=== PATIENT | female | born 1990 | race Caucasian/White ===

== ENCOUNTER 2018-01-24 23:15 | Inpatient (IN) | payer MEDICAID, SELFPAY ==
[2018-01-24 23:50] LABS: HCT 35.4 % (36.0-46.0); HGB 12.2 g/dL (12.0-15.5); Mean Corp. HGB Concentration 34.5 g/dL (32.0-36.0); Mean Corpuscular Hemoglobin 31.5 pg (27.0-33.0); Mean Corpuscular Volume 91.5 fL (80-95); Mean Platelet Volume 10.5 fL (8.0-11.0); Platelet Count 197 x1000/uL (130-400); RBC 3.87 m/cumm (4.00-5.20); RBC Distribution Width 14.2 % (11.7-14.6); White Blood Cell Count 14.14 k/cumm (4.4-10.8)
[2018-01-25] MEDS: Oxytocin 10 UNITS/ML VIAL IM (01:10)
[2018-01-25] MEDS: Ibuprofen 600 MG TAB PO ×2 (02:33→13:07)
[2018-01-25] MEDS: Acetaminophen 325 MG TAB 650 MG PO ×4 (02:34→23:15)
[2018-01-25 22:01] LABS: HCT 34.3 % (36.0-46.0); HGB 11.4 g/dL (12.0-15.5); Mean Corp. HGB Concentration 33.2 g/dL (32.0-36.0); Mean Corpuscular Hemoglobin 31.6 pg (27.0-33.0); Mean Platelet Volume 10.9 fL (8.0-11.0); Platelet Count 210 x1000/uL (130-400); RBC 3.61 m/cumm (4.00-5.20); RBC Distribution Width 14.4 % (11.7-14.6); White Blood Cell Count 10.43 k/cumm (4.4-10.8)
--- NOTE | 2018-01-26 02:24 | DISCHARGE ---
Discharge - Discharge Orders - Discharge Plan Disposition: HOME Condition: Good Diet:: Normal Diet Equipment/Supplies:: No Equipment Needed Activity:: Activity as Tolerated - Instructions
[2018-01-26] MEDS: Ibuprofen 600 MG TAB PO (03:30)
== END 2018-01-26 12:45 | disposition home or self-care (01) | DRG 775 ==
PROVIDERS: Admitting Provider Advanced Practice Midwife; Visit Provider Advanced Practice Midwife
DX: O48.0 Post-term pregnancy (principal); Z37.0 Single live birth; Z3A.41 41 weeks gestation of pregnancy; Z14.1 Cystic fibrosis carrier
CPT/HCPCS: 36415; 85027; 86850; 86900; 86901; J2590

== ENCOUNTER 2018-02-27 01:22 | Emergency (ER) | payer MEDICAID, SELFPAY ==
[2018-02-27 01:25] VITALS: BP 121/79; PULSE 94; RESP 18; TEMP 36.3; O2SAT 100
--- NOTE | 2018-02-27 01:29 | ED.GENADUL ---
Disposition Clinical Impression: Bronchitis Disposition: HOME Condition: Good Instructions: Acute Bronchitis (ED) Prescriptions: Guaifenesin/Dextromethorphan [Guaifenesin Dm Syrup] 10 ml PO Q6H PRN PRN #100 syrup PRN Reason: Azithromycin 250 mg PO DAILY #4 tablet Medical Decision Making - Medical Decision Making 27-year-old female with persistent productive cough and upper respiratory illness. Difficult to differentiate acute bronchitis versus developing sinusitis. He does not have any current regular medical care. Will opt to treat with a course of azithromycin. She stable for discharge to home. Will trial small amount of guaifenesin for cough suppressant as well. Patient understands return precautions to the ER. History of Present Illness - General Chief complaint: Sorethroat Stated complaint: SORE THROAT Time Seen by Provider: 02/27/18 01:29 Source: patient, RN notes reviewed Mode of arrival: ambulatory Limitations: no limitations - History of Present Illness Initial comments: Cough and cold: 27-year-old female presents from work with complaint of 2 days of the gradual onset of a persistent productive cough associated with sore throat and ear congestion. States she rarely gets sick and this feels similar to previous bronchitis or sinusitis in the past. No associated fever that she is documented, no sick contacts. She has an infant and other children at home. No recent travel. -: days(s) Location: chest Radiation: non-radiation Quality: burning Consistency: intermittent Improves with: none Worsens with: none - Related Data Azithromycin 250 mg PO DAILY #4 tablet 02/27/18 Guaifenesin/Dextromethorphan [Guaifenesin Dm Syrup] 10 ml PO Q6H PRN PRN #100 syrup 02/27/18 Allergies Allergy/AdvReac Type Severity Reaction Status Date / Time No Known Allergies Allergy Unverified 01/25/18 04:22 Review of Systems Other: 6 systems reviewed, otherwise neg Past Medical History - Past Medical History Medical history: no medical history Surgical history: no surgical history - Social History Alcohol use: none General Exam - General Limitations: no limitations General appearance: alert, in no apparent distress - Head Head exam: Present: atraumatic, normocephalic - Eye Eye exam: Present: PERRL, EOMI - ENT ENT exam: Present: normal exam, mucous membranes dry, TM's normal bilaterally, other (Mild erythematous tonsillar pillars. There is facial tenderness to percussion) - Respiratory Respiratory exam: Present: normal lung sounds bilaterally, other (Cough noted). Absent: respiratory distress - Cardiovascular Cardiovascular Exam: Present: regular rate, normal rhythm - GI/Abdominal GI/Abdominal exam: Present: soft. Absent: distended - Neurological Exam Neurological exam: Present: alert, oriented X3 - Psychiatric Psychiatric exam: Present: normal affect, normal mood - Skin Skin exam: Present: warm, dry, intact Course Vital Signs - 24 hr 02/27/18 01:25 Temperature 36.3 C L Pulse 94 H Respiratory 18 Rate Blood Pressure 121/79 Pulse Oximetry 100
[2018-02-27] MEDS: Azithromycin 250 MG TAB 500 MG PO (01:33)
[2018-02-27] MEDS: guaiFENesin/D-METHORPHAN HB 5 ML CUP 10 ML PO (01:33)
--- NOTE | 2018-02-28 09:46 | PDOC.ERCMPRO ---
Care Management Progress Note 02/28-Dr. Aguilera requested assistance with a PCP f/u (Dr. Uriostegui manager distribution center) in 1-2 weeks for sore throat and acute bronchitis. Referral faxed to [facility] this am.
--- NOTE | 2018-02-28 09:47 | CMPROGNOTE_ITS ---
Care Management Progress Note 02/28-Dr. Aguilera requested assistance with a PCP f/u (Dr. Uriostegui airport tower controller) in 1 -2 weeks for sore throat and acute bronchitis. Referral faxed to [facility] this am.
== END 2018-02-27 01:38 | disposition home or self-care (01) ==
PROVIDERS: Emergency Provider Emergency Medicine
DX: J20.9 Acute bronchitis, unspecified (principal); J02.9 Acute pharyngitis, unspecified
CPT/HCPCS: 99283

== ENCOUNTER 2020-10-24 22:23 | Emergency (ER) | payer MEDICAID, SELFPAY ==
[2020-10-24] VITALS (12 sets, daily range): BP systolic 106–134; BP diastolic 59–84; PULSE 75–81; RESP 16–18; TEMP 36.6; O2SAT 98–100
--- NOTE | 2020-10-24 22:15 | RT.EKG_ITS ---
APPROVED REPORT Exam: Resting ECG Patient Location: E HR:76 bpm ECG Measurements Heart Rate 76 AXIS TX 178 P 59 QRSd 106 QRS 51 QT 411 T 31 QTc 464 Conclusion Sinus rhythm...normal P axis, V-rate 60- 99
--- NOTE | 2020-10-24 22:32 | ED.GENADUL_ITS ---
Discharge Plan Disposition Patient Disposition: HOME Condition: Good Discharge Details Clinical Impression: Chest pain Primary Care Provider: Michelle,Local ED Provider: Austin Buckner Home Meds and New Rx's Prescriptions: No Action No Known Home Meds RF: 0 Discharge Instructions Instructions: Chest Pain (ED) Additional Instructions: Work-up tonight is unremarkable. Your chest x-ray, EKG, laboratory studies are all fine. You may use Tylenol or Motrin for discomfort. Follow-up with primary care next week if continued problems. Return to ED if you develop worsening c hest pain, shortness of breath, neurologic changes, high fever, other concerns. Referrals: Primary Care Provider [Outside] Medical Decision Making <Cesar Lemons MD - Last Filed: 10/24/20 22:40> 30 yo female who denies chronic medical problems comes in with complaints of chest pain. She states she had her second moderna vaccine this past Wednesday and since than has had numbness of her right arm and tonight started to have chest tightness. She denies swelling, rash, cough. Denies ever having symptoms like this in the past. She states the tingling goes down the entire right arm and has no swelling of the arm compared to the right, normal sensation and pulses and full range of motion of the arm, no erythema or warmth. She denies pain with exertion or diaphoresis, no leg swelling. No evidence of anaphylaxis on exam, clear lungs, no rashes speaking in full sentences. She does appear anxious which could be contributing to her symptoms but given the chest pain and heart score of 1 will obtain ecg and troponin. She is wells score low, will send d dimer to evaluate for PE. Normal sensation and pulses, no tearing back pain so doubt dissection. No focal deficits, NIH of 0 so doubt cva as cause of tingling and no severe headaches to suggest subarachonid hemorrhage, cavenous sinus thrombosis or other acute life threatening long goods drier pathology. She also has no findings to suggest dvt of the upper extremity at this time. Patient signed out pending lab and cxr results and reassessment Differential Diagnosis Differential Diagnosis: nstemi, pe, vaccine reaction ECG Data Attestation: I personally reviewed and interpreted this ECG (s) as follows: Prior ECG tracings: not available for review Interpretation: sinus rhythm, rate of 76, pr 178, no acute st t wave ischemic findings <Austin Buckner MD - Last Filed: 10/25/20 02:12> Patient signed out to me pending laboratory studies and repeat EKG and troponin if first set of labs normal. Patient first set of labs indeed came back fine. Negative D-dimer. Negative first troponin. Low potassium otherwise unremarkable. Chest x-ray negative per radiology preliminary read. Patient made aware of results and reported feeling much better. Second EKG remains normal. Second troponin negative. Feel patient is safe for discharge home at this time. Follow-up with primary care next week for persistent symptoms. Return to ED for significantly worsening pain, fever, shortness of breath, neurologic changes, other concerns Lab Data Lab results reviewed: Yes I reviewed the patient's lab results. Lab results narrative: Unremarkable labs other than slightly low potassium. Negative D-dimer and negative troponin x2 ECG Data Attestation: I personally reviewed and interpreted this ECG (s) as follows: Prior ECG tracings: available for review Interpretation: Normal EKG. HPI <Cesar Lemons MD - Last Filed: 10/24/20 22:40> General Mode of arrival: ambulatory . Date/Time Provider Initiated Documentation: 10/24/20 22:24 . Limitations to Documentation: no limitations . Information obtained by: patient . History of Present Illness 30 year old F presents to the emergency department with the chief complaint of chest pain, described as moderate, Patient started experiencing this minute(s) (45) and it has been constant. No relieving factors improve symptom(s), No exacerbating factors reported . Patient did receive the following treatments prior to arrival, none Related Data Home Medications Medication Instructions Recorded Confirmed Unknown [No Known Home Meds] 10/25/20 10/25/20 Allergies Allergy/AdvReac Type Severity Reaction Status Date / Time No Known Allergies Allergy Unverified 01/25/18 04:22 Review of Systems <Cesar Lemons MD - Last Filed: 10/24/20 22:40> All systems reviewed & are unremarkable except as noted in HPI and below Constitutional Constitutional: Denies chills and Denies weakness Respiratory Respiratory: Denies cough Gastrointestinal Gastrointestinal: Denies abdominal pain, Denies nausea and Denies vomiting Genitourinary Genitourinary: Denies dysuria Musculoskeletal Musculoskeletal: Denies joint swelling Integumentary/Breasts Skin/Breast: Denies rash Neurologic Neurologic: Denies weakness PFSH <Cesar Lemons MD - Last Filed: 10/24/20 22:40> Surgical History pupil repair after trauma Family History Mother Alcohol abuse Father Neoplasm COLON Sister Substance abuse Social History Smoking/Tobacco Use Status: Current every day Tobacco Type: cigarettes Smoking risk assessment performed?: Yes Alcohol Intake: never Drug use: Never Substance use type: does not use Do you feel safe at home: Yes Do you feel safe in your relationship?: Yes Exam <Cesar Lemons MD - Last Filed: 10/24/20 22:40> Const General: anxious Orientation: alert HENMT Head: normal to inspection Ears: external ears normal General nose exam: external nose normal Mouth: moist mucous membranes Eyes General: appearance normal, both eyes and all related structures Neck Neck: normal visual inspection Resp Effort & Inspection: normal respiratory effort and able to speak in complete sentences Cardio Rate: regular rate Skin General skin exam: no rashes or lesions noted Neuro General: patient alert and patient oriented x3 Extrem General: normal to inspection Psych Mental Status: mental status grossly normal Sign Out <Cesar Lemons MD - Last Filed: 10/24/20 22:40> Sign Out Data: Sign Out Comment: Chest pain pending labs and chest xray Last updated by Cesar Lemons MD at 10/24/20 22:52
--- NOTE | 2020-10-24 23:00 | DI.RAD_ITS ---
EXAM: XR PORTABLE CHEST AP CLINICAL HISTORY: chest pain TECHNIQUE: 2D digital imaging was performed. COMPARISON: No exams were available for comparison FINDINGS: MEDIASTINUM: Normal. HEART: Normal. PULMONARY VASCULATURE: Normal. LUNGS: Clear. PLEURAL SPACE: No pleural effusion or pneumothorax. BONE:Within normal limits for the patient's age. OTHER FINDINGS:Normal. IMPRESSION: No acute pulmonary findings. DATA REPOSITORY: RADIATION DOSE DELIVERED:
[2020-10-24] MEDS: Aspirin 81 MG CHEW 324 MG CH (23:06)
--- NOTE | 2020-10-24 23:12 | DI.VRAD_ITS ---
PROCEDURE INFORMATION: Exam: XR Chest Exam date and time: 10/24/2020 11:01 PM Age: 30 years old Clinical indication: Chest pain; Type not specified TECHNIQUE: Imaging protocol: XR of the chest. Views: 1 view. COMPARISON: No relevant prior studies available. FINDINGS: Lungs: Unremarkable. No consolidation. Pleural spaces: Unremarkable. No pleural effusion. No pneumothorax. Heart/Mediastinum: Unremarkable. No cardiomegaly. Bones/joints: Unremarkable. IMPRESSION: No acute findings. Dictated and Authenticated by: Devendra Gonzalez MD. Ordering:MYRA Guerrero MD
[2020-10-24 23:13] LABS: Abs Immature Grans 0.03 10^3/uL (0.0-0.06); Absolute Basophil Count 0.04 10^3/uL (0.0-0.2); Absolute Eosinophil Count 0.45 10^3/uL (0.0-0.7); Absolute Lymphocyte Count 2.26 10^3/uL (1.2-3.4); Absolute Monocyte Count 0.89 10^3/uL (0.1-0.8); Absolute Neutrophil Count 6.23 10^3/uL (1.2-6.7); Basophils % 0.4; Eosinophils % 4.5; HCT 41.2 % (36.0-46.0); HGB 13.7 g/dL (11.2-15.7); Immature Grans % 0.3; Lymphocytes % 22.8; MCHC 33.3 % (32.0-36.0); MCV 90.2 fL (80-95); MPV 10.2 fL (8.0-11.0); Nucleated RBC 0 %; Platelet Count 257 10^3/uL (130-400); RBC 4.57 10^6/uL (3.93-5.22); RDW 12.4 % (11.7-14.6)
[2020-10-24 23:29] LABS: ALT 30 U/L (14-59); AST 16 U/L (15-37); Albumin 3.8 g/dL (3.4-5.0); Alkaline Phosphatase 71 U/L (46-116); BUN 12 mg/dL (7-18); Bilirubin, Direct 0.1 mg/dL (0.0-0.2); Bilirubin, Total 0.4 mg/dL (0.2-1.0); CREATININE 0.9 mg/dL (0.55-1.02); Calcium 8.9 mg/dL (8.5-10.1); Chloride 104 mmol/L (98-107); Glucose 82 mg/dL (74-106); Lipase 75 U/L (73-393); Magnesium 1.8 mg/dL (1.8-2.4); Potassium 3.2 mmol/L (3.5-5.1); Sodium 141 mmol/L (136-145); Total Protein 7.1 g/dL (6.4-8.2); Troponin I < 0.05 ng/mL (<0.06)
[2020-10-24 23:43] LABS: D-Dimer 348 ng/mlFEU (<500)
[2020-10-25] VITALS (24 sets, daily range): BP systolic 101–106; BP diastolic 56–67; PULSE 65–80; O2SAT 95–99
--- NOTE | 2020-10-25 01:15 | RT.EKG_ITS ---
APPROVED REPORT Exam: Resting ECG Patient Location: E HR:72 bpm ECG Measurements Heart Rate 72 AXIS AR 201 P 70 QRSd 105 QRS 55 QT 424 T 31 QTc 464 Conclusion Sinus rhythm...normal P axis, V-rate 60- 99 Normal [place] Normal Electrocardiogram
[2020-10-25 01:57] LABS: Troponin I < 0.05 ng/mL (<0.06)
== END 2020-10-25 02:18 | disposition home or self-care (01) ==
PROVIDERS: Emergency Medicine; Emergency Provider Emergency Medicine
DX: R07.9 Chest pain, unspecified (principal)
CPT/HCPCS: 36415; 80053; 81025; 83690; 93005; 99284; 71045; 82248; 83735; 84484; 85025; 85379; 93010; 99283

== ENCOUNTER 2021-09-24 02:36 | Outpatient (CLI) | payer MEDICAID, SELFPAY ==
[2021-09-24 15:09] LABS: TSH (W/Ref FT4) 0.89 uIU/mL (0.36-3.74)
[2021-09-24 22:55] LABS: Prolactin 3.7 ng/mL (See Table)
== END 2021-09-24 02:37 | disposition home or self-care (01) ==
LOC: LBO 02:36
PROVIDERS: Visit Provider Nurse Practitioner Family
DX: N64.3 Galactorrhea not associated with childbirth (principal)
CPT/HCPCS: 36415; 84146; 84443

== ENCOUNTER 2021-09-28 18:27 | Inpatient (IN) | payer MEDICAID, SELFPAY ==
[2021-09-28] VITALS (49 sets, daily range): BP systolic 83–150; BP diastolic 33–83; PULSE 82–131; RESP 15–40; TEMP 39.6–39.9; O2SAT 80–100
--- NOTE | 2021-09-28 18:45 | DI.CT_ITS ---
Exam(s) CT ABDOMEN PELVIS W EXAM: CT ABDOMEN PELVIS W CLINICAL HISTORY: Left flank, LLQ and abdominal pain, temp of 103.8. TECHNIQUE: Imaging Protocol: Axial computed tomography images with coronal and sagittal reformatted images were created and reviewed CONTRAST MATERIAL: Intravenous: Omnipaque 100cc Oral: None COMPARISON: No exams were available for comparison FINDINGS: VISUALIZED LUNG BASES: No nodules nor pleural effusions evident. Mild dependent markings in both low er lobes. ABDOMEN: There is no ascites. LIVER: There are no focal hepatic lesions evident . GALLBLADDER/BILIARY: The gallbladder is contracted. No obvious calcified gallstones therein. No dil atation of intrahepatic ducts. CBD is not dilated. PANCREAS: There is a 1.7 x 1.1 0.0 cm addition density off the superior aspect pancreatic body. This is isodense to pancreatic tissue and may be none atomic variant. Nevertheless, should undergo furth er study. Pancreatic duct is not dilated. SPLEEN: Spleen is not enlarged. No obvious intrasplenic lesions. Splenic and portal veins are paten t. ADRENALS: There are no significant adrenal masses. KIDNEYS:There is mild heterogeneous enhancement in the inferior pole the left kidney, without a disce rnible mass. Probably consistent with pound nephritis. Mild perinephric streaking evident at this l evel. No solid mass nor calculus nor hydronephrosis evident. A retroaortic left renal vein is noted .. ABDOMINAL AORTA: Abdominal aorta is not enlarged. LYMPH NODES:There is no retroperitoneal nor paraaortic adenopathy. ABDOMINAL WALL: No evidence of significant anterior abdominal wall nor inguinal hernia. GI: There is no evidence of bowel obstruction, free air, nor abscess. PELVIS: GI: No evidence of appendicitis.No evidence of sigmoid diverticulitis. LYMPH NODES: There is no intrapelvic nor inguinal adenopathy. REPRODUCTIVE: Uterus and adnexal regions appear unremarkable. There is a cyst in the left ovary rick ures 1.5 x 1.3 cm, probably follicular. No free fluid. URINARY BLADDER: No calculi nor obvious masses evident OSSEOUS: No significant osseous lesions. IMPRESSION: 1. There is an area of mild heterogeneous enhancement in the inferior pole the left kidney, probably consistent with pyelonephritis. There are no obstructing calculi on either side. No hydronephrosis. No discernible mass nor formed abscess. 2. There is a 1.5 cm cyst in the left ovary which is most probably follicular. There is no free flui d. 3. Abnormal finding in the pancreas as described above, either an anatomic variant or isodense mass o ff the superior aspect of the pancreatic body. Recommend further imaging with MRI. RADIATION DOSE DELIVERED: 1,276.22mGy.cm Total DLP DATA REPOSITORY: All CT scans at this facility are submitted to the National Radiology Data Registry (NRDR) Dose Index Registry (DIR) with the [employer] (ACR). RADIATION OPTIMIZATION: All CT scans at this facility use at least one of these dose optimization te chniques: automated exposure control; mA and/or kV adjustment per patient size (includes targeted exa ms where dose is matched to clinical indication); or iterative reconstruction.
[2021-09-28] MEDS: Normal Saline 1,000 ML 1000 ML IV (18:56)
[2021-09-28 18:58] LABS: Abs Immature Grans 0.06 10^3/uL (0.0-0.06); Absolute Basophil Count 0.02 10^3/uL (0.0-0.2); Absolute Eosinophil Count 0.09 10^3/uL (0.0-0.7); Absolute Lymphocyte Count 1.41 10^3/uL (1.2-3.4); Absolute Monocyte Count 0.29 10^3/uL (0.1-0.8); Basophils % 0.2; Eosinophils % 0.8; HCT 41.8 % (36.0-46.0); Immature Grans % 0.5; Lymphocytes % 12.8; MCH 30.8 pg (27.0-33.0); MCHC 33.5 % (32.0-36.0); MCV 91.9 fL (80-95); MPV 9.8 fL (8.0-11.0); Monocytes % 2.6; Neutrophils % 83.1; Nucleated RBC 0 %; Platelet Count 290 10^3/uL (130-400); RBC 4.55 10^6/uL (3.93-5.22); RDW 12.6 % (11.7-14.6); RDW-SD 42.5 fL
[2021-09-28 19:00] LABS: Absolute Neutrophil Count 9.14 10^3/uL (1.2-6.7)
[2021-09-28] MEDS: ACETAMINOPHEN 1,000 MG/100 ML BTL 400 MG IVPB (19:00)
[2021-09-28] MEDS: cefTRIAXone 2 GM/50 ML BAG IVPB (19:05)
[2021-09-28 19:06] LABS: Bilirubin Negative (Negative); Blood Small (Negative); Clarity Sl Cloudy (Clear); Glucose Negative (Negative); Ketones Negative (Negative); Leukocyte Esterase Moderate (Negative); Nitrite Negative (Negative); Urobilinogen 0.2 EU/dL (Up TO 0.2)
[2021-09-28 19:10] LABS: ALT 32 U/L (14-59); AST 23 U/L (15-37); Albumin 4.2 g/dL (3.4-5.0); Alkaline Phosphatase 79 U/L (46-116); Anion Gap 10.7 mmol/L (3-11); BUN 8 mg/dL (7-18); Bilirubin, Total 0.6 mg/dL (0.2-1.0); CO2 26.3 mmol/L (21.0-32.0); Calcium 8.7 mg/dL (8.5-10.1); Chloride 104 mmol/L (98-107); ETHANOL BLOOD 77.1 mg/dL (<10); Glucose 87 mg/dL (74-106); Lipase 68 U/L (73-393); Potassium 3.4 mmol/L (3.5-5.1); Sodium 141 mmol/L (136-145); Total Protein 7.8 g/dL (6.4-8.2)
[2021-09-28 19:16] LABS: Bacteria Few HPF (Negative); C & S Indicated? Yes; Crystals Negative HPF (Negative); Epithelial Cells Moderate HPF (Negative); Mucus Negative (Negative); RBC 0-2 HPF (0-2); WBC >50 HPF (0-5)
[2021-09-28 19:22] LABS: HCG Qual (Serum) Negative
[2021-09-28 19:34] LABS: Source Nasal/Nares
--- NOTE | 2021-09-28 20:00 | ED.GENADUL_ITS ---
Discharge Plan Disposition Patient Disposition: [facility] INPATIENT Condition: Serious Discharge Details Clinical Impression: Pyelonephritis Primary Care Provider: Michelle,Local ED Provider: Emily Edward Home Meds and New Rx's Prescriptions: No Action No Known Home Meds 0RF Medical Decision Making Lactate of 2, leukocyte esterase, 11,000, tachycardia in the 130, temperature of 103.8 Sepsis with pyelonephritis on CT scan, agreeable to admission at this time Unfortunately patient started vomiting at time of reassessment, received Zofran, 2 L of normal saline, 2 g of ceftriaxone, 4 mg of Zofran Will need telemetry monitoring No evidence of shock at this time Urine culture pending Case discussed with Dr. Ott, agreeable to admitting this patient No obstructive uropathy on CT scan Chest x-ray does not show acute abnormality per virtual radiology interpretation in my review Medical Records Medical records reviewed: Yes I reviewed the patient's medical records. HPI General Date/Time Provider Initiated Documentation: 09/28/21 18:31 . HPI Narrative: This 31-year-old female presents with left quadrant abdominal tenderness. She states that after work today she had two 22-year-old years. She states that the pain began after this. She has had chills all day. She states she was positive for Covid approximately a week and 1/2-year. She is fully vaccinated. Denies chance of . Denies any chest discomfort. Denies shortness of breath. Denies history of IV drug abuse. Denies any rashes or lesions. Was otherwise feeling symptomatically improved for COVID-19. Related Data Home Medications Medication Instructions Recorded Confirmed Unknown [No Known Home Meds] 09/28/21 09/28/21 Allergies Allergy/AdvReac Type Severity Reaction Status Date / Time No Known Allergies Allergy Verified 09/28/21 20:51 General Stated Complaint: Fever ALBERTINA: 2 Review of Systems All systems reviewed & are unremarkable except as noted in HPI and below PFSH All Active Problems (Updated 09/28/21 @ 22:39 by Pasquale Ott MD) Pyelonephritis (Acute) Unwanted fertility (Acute) Chest pain (Acute) Surgical History pupil repair after trauma Family History Mother Alcohol abuse Father Neoplasm COLON Sister Substance abuse Social History Smoking/Tobacco Use Status: Current every day Tobacco Type: cigarettes Smoking risk assessment performed?: Yes Alcohol Intake: never Drug use: Never Substance use type: does not use Do you feel safe at home: Yes Do you feel safe in your relationship?: Yes Exam Const General: cooperative and no acute distress Orientation: alert and oriented x3 HENMT Other: moist mucous membranes Eyes Pupils: PERRL Resp Effort & Inspection: normal respiratory effort Auscultation: clear to auscultation bilaterally Cardio Rate: tachycardic Rhythm: regular rhythm GI Inspection: normal to inspection Auscultation: normal bowel sounds Other: LUQ and L cva tenderness Skin General skin exam: no rashes or lesions noted Neuro General: patient alert and patient oriented x3 Extrem General: normal to inspection Course Vital Signs Vital signs: Vital Signs Temperature 39.9 C H 09/28/21 18:30 Pulse 131 H 09/28/21 18:30 Respiratory Rate 40 H 09/28/21 18:30 Blood Pressure 150/83 H 09/28/21 18:30 Pulse Oximetry 100 09/28/21 18:30 Temperature 39.9 C H 09/28/21 18:30 Temperature Source Oral 09/28/21 18:30 Pulse 131 H 09/28/21 18:30 Respiratory Rate 40 H 09/28/21 18:30 Respiratory Effort 09/28/21 19:23 Blood Pressure 150/83 H 09/28/21 18:30 Blood Pressure Position Supine 09/28/21 18:30 Pulse Oximetry 100 09/28/21 18:30 Oxygen Delivery Method Room Air 09/28/21 18:30 Oxygen Flow Rate 0 09/28/21 18:30 Comment 09/28/21 18:30 Lab/Test Results Lab/Test Results: 09/28/21 19:20 Blood Blood Culture - Pending 09/28/21 18:59 Urine - Reflex from Ua Urine Culture - Pending 09/28/21 18:35 Blood Blood Culture - Pending Laboratory Tests Range/Units 09/28/21 09/28/21 09/28/21 18:35 18:35 18:35 WBC (4.4-10.8) 10^3/uL 11.00 H RBC (3.93-5.22) 10^6/uL 4.55 Hgb (11.2-15.7) g/dL 14.0 Hct (36.0-46.0) % 41.8 MCV (80-95) fL 91.9 MCH (27.0-33.0) pg 30.8 MCHC (32.0-36.0) % 33.5 RDW (11.7-14.6) % 12.6 Plt Count (130-400) 10^3/uL 290 MPV (8.0-11.0) fL 9.8 Immature Gran % 0.5 Neutrophils % 83.1 Lymphocytes % 12.8 Monocytes % 2.6 Eosinophils % 0.8 Basophils % 0.2 Nucleated RBC % % 0 Absolute Neutrophils (1.2-6.7) 10^3/uL 9.14 H Absolute Lymphocytes (1.2-3.4) 10^3/uL 1.41 Absolute Monocytes (0.1-0.8) 10^3/uL 0.29 Absolute Eosinophils (0.0-0.7) 10^3/uL 0.09 Absolute Basophils (0.0-0.2) 10^3/uL 0.02 VBG Lactate (0.6-1.4) mmol/L 2.0 H Sodium (136-145) mmol/L 141 Potassium (3.5-5.1) mmol/L 3.4 L Chloride (98-107) mmol/L 104 Carbon Dioxide (21.0-32.0) mmol/L 26.3 Anion Gap (3-11) mmol/L 10.7 BUN (7-18) mg/dL 8 Creatinine (0.55-1.02) mg/dL 1.0 Estimated GFR/1.73 m2 (mL/min/1.73m2) >= 60.00 Glucose (74-106) mg/dL 87 Calcium (8.5-10.1) mg/dL 8.7 Total Bilirubin (0.2-1.0) mg/dL 0.6 AST (15-37) U/L 23 ALT (14-59) U/L 32 Alkaline Phosphatase (46-116) U/L 79 Total Protein (6.4-8.2) g/dL 7.8 Albumin (3.4-5.0) g/dL 4.2 Lipase (73-393) U/L 68 Serum HCG, Qual Urine Color (Yellow) Urine Clarity (Clear) Urine pH (5-8) Ur Specific [place] (1.005-1.025) Urine Protein (Negative) mg/dL Urine Ketones (Negative) mg/dL Urine Blood (Negative) Urine Nitrite (Negative) Urine Bilirubin (Negative) Urine Urobilinogen (Up TO 0.2) EU/dL Ur Leukocyte Esterase (Negative) Urine RBC (0-2) HPF Urine WBC (0-5) HPF Ur Epithelial Cells (Negative) HPF Urine Crystals (Negative) HPF Urine Bacteria (Negative) HPF Urine Mucus (Negative) Ur Culture Indicated? Urine Glucose (Negative) mg/dL Ethyl Alcohol (<10) mg/dL 77.1 H COVID-19 Source Range/Units 09/28/21 09/28/21 09/28/21 18:35 18:59 19:20 WBC (4.4-10.8) 10^3/uL RBC (3.93-5.22) 10^6/uL Hgb (11.2-15.7) g/dL Hct (36.0-46.0) % MCV (80-95) fL MCH (27.0-33.0) pg MCHC (32.0-36.0) % RDW (11.7-14.6) % Plt Count (130-400) 10^3/uL MPV (8.0-11.0) fL Immature Gran % Neutrophils % Lymphocytes % Monocytes % Eosinophils % Basophils % Nucleated RBC % % Absolute Neutrophils (1.2-6.7) 10^3/uL Absolute Lymphocytes (1.2-3.4) 10^3/uL Absolute Monocytes (0.1-0.8) 10^3/uL Absolute Eosinophils (0.0-0.7) 10^3/uL Absolute Basophils (0.0-0.2) 10^3/uL VBG Lactate (0.6-1.4) mmol/L Sodium (136-145) mmol/L Potassium (3.5-5.1) mmol/L Chloride (98-107) mmol/L Carbon Dioxide (21.0-32.0) mmol/L Anion Gap (3-11) mmol/L BUN (7-18) mg/dL Creatinine (0.55-1.02) mg/dL Estimated GFR/1.73 m2 (mL/min/1.73m2) Glucose (74-106) mg/dL Calcium (8.5-10.1) mg/dL Total Bilirubin (0.2-1.0) mg/dL AST (15-37) U/L ALT (14-59) U/L Alkaline Phosphatase (46-116) U/L Total Protein (6.4-8.2) g/dL Albumin (3.4-5.0) g/dL Lipase (73-393) U/L Serum HCG, Qual Negative Urine Color (Yellow) Yellow Urine Clarity (Clear) Sl Cloudy Urine pH (5-8) 7.0 Ur Specific [place] (1.005-1.025) 1.020 Urine Protein (Negative) mg/dL Negative Urine Ketones (Negative) mg/dL Negative Urine Blood (Negative) Small H Urine Nitrite (Negative) Negative Urine Bilirubin (Negative) Negative Urine Urobilinogen (Up TO 0.2) EU/dL 0.2 Ur Leukocyte Esterase (Negative) Moderate H Urine RBC (0-2) HPF 0-2 Urine WBC (0-5) HPF >50 H Ur Epithelial Cells (Negative) HPF Moderate Urine Crystals (Negative) HPF Negative Urine Bacteria (Negative) HPF Few Urine Mucus (Negative) Negative Ur Culture Indicated? Yes Urine Glucose (Negative) mg/dL Negative Ethyl Alcohol (<10) mg/dL COVID-19 Source Nasal/Nares Critical Care Time Critical Care Time Critical Care Time: Yes Total Critical Care Time: 40 Attestation: Antipyretic, telemetry monitoring, IV antibiotic, CT imaging, diagnostic laboratory evaluation and interpretation, hospital admission PAWSS Have you Been Recently Intoxicated or Drunk Within the Last 30 days?: No Have you Ever Experienced Previous Episodes of Alcohol Withdrawal?: No Have you ever Experienced Withdrawal Seizures?: No Have you ever Experienced Delirium Tremens(DT)s?: No Have you ever undergone Alcohol Rehabilitation Treatment (i.e, inpt ot outpatient treatment programs)?: No Have you ever Experienced Blackouts?: No Have you ever Combined Alcohol with other Downers within the last 90 days?: No Have you ever Combined Alcohol with any other Substance of Abuse during the last 90 days?: No Positive Blood Alcohol level on Presentation? [PCS.BAL]: No Evidence of Increased Autonomic Activity (i.e. HR>120, tremor, sweating, agitation, nausea)?: No Result: 0
[2021-09-28] MEDS: Omnipaque 350 MG/ML 100 ML BTL IJ (20:10)
[2021-09-28 20:12] LABS: COVID-19 PCR Negative (Negative)
[2021-09-28] MEDS: Normal Saline Flush 10 ML SYR IVP (20:13)
--- NOTE | 2021-09-28 21:00 | DI.RAD_ITS ---
Exam(s) XR CHEST 2V PA LATERAL EXAM: XR CHEST 2V PA LATERAL CLINICAL HISTORY: left flank pain hx of covid. TECHNIQUE: 2D digital imaging was performed. COMPARISON: No exams were available for comparison FINDINGS: 2 views: Heart size is normal. The mediastinum is not widened. Lungs are clear. No infiltrates nor pleural effusions. IMPRESSION: No acute pulmonary findings. DATA REPOSITORY: RADIATION DOSE DELIVERED:
--- NOTE | 2021-09-28 21:22 | DI.VRAD_ITS ---
PROCEDURE INFORMATION: Exam: XR Chest Exam date and time: 09/28/2021 9:11 PM Age: 31 years old Clinical indication: Other: Left flank pain HX of covid TECHNIQUE: Imaging protocol: XR of the chest. Views: 2 views. COMPARISON: XR PORTABLE CHEST AP 10/24/2020 10:58 PM FINDINGS: Lungs: No pulmonary consolidation is seen. Pleural spaces: No pleural effusion or pneumothorax is demonstrated. Heart/Mediastinum: Heart size is normal. Bones/joints: The visualized bony structures appear grossly intact, as seen. IMPRESSION: No active disease is seen in the chest. Dictated and Authenticated by: Mina Sanders MD. Ordering:ANI Diaz MD
--- NOTE | 2021-09-28 21:22 | DI.VRAD_ITS ---
PROCEDURE INFORMATION: Exam: CT Abdomen And Pelvis With Contrast Exam date and time: 09/28/2021 8:12 PM Age: 31 years old Clinical indication: Localized; Left lower quadrant (llq); Patient HX: Left flank, llq and abdominal pain, temp of 103.8 TECHNIQUE: Imaging protocol: Computed tomography of the abdomen and pelvis with contrast. Radiation optimization: All CT scans at this facility use at least one of these dose optimization techniques: automated exposure control; mA and/or kV adjustment per patient size (includes targeted exams where dose is matched to clinical indication); or iterative reconstruction. Contrast material: OMNIPAQUE 350; Contrast volume: 100 ml; Contrast route: INTRAVENOUS (IV); COMPARISON: OB US 2-3 TRIMESTER TRANSABD*P 08/20/2017 6:16 PM FINDINGS: Lungs: Mild dependent atelectasis at the lung bases. Liver: Normal appearing liver. Gallbladder and bile ducts: Gallbladder collapsed and not well evaluated but grossly unremarkable, as seen. No calcified gallstones seen. No biliary dilatation. Pancreas: Normal appearing pancreas. Spleen: Normal appearing spleen. Adrenal glands: Normal appearing adrenal glands. Kidneys and ureters: Normal-appearing right kidney. Heterogeneous enhancement of the left kidney with regions of diminished enhancement suspicious for acute pyelonephritis, most prominent through the lower pole. No hydronephrosis. Hazy peripelvic and proximal periureteral fat stranding also present on the left. No distally obstructing ureteral calculus. Stomach and bowel: No oral contrast. Stomach moderately distended with ingested material. No small bowel dilatation to suggest obstruction. Normal-appearing colon. No evidence of diverticulitis or colitis. Appendix: Normal retrocecal appendix. Intraperitoneal space: Trace fluid suggested in the deep pelvis, nonspecific. No free air. Vasculature: Normal caliber abdominal aorta. Retroaortic left renal vein, anatomic variant. Lymph nodes: No pathologically enlarged mesenteric, retroperitoneal, or pelvic sidewall lymph nodes. Urinary bladder: Normal appearing urinary bladder. Reproductive: Normal-sized uterus. Ovaries partially obscured and poorly evaluated but not grossly enlarged. Suggestion of a 12 mm dominant left ovarian follicle. Bones/joints: No acute fracture seen among the bones of the abdomen or pelvis. Soft tissues: Tiny fat-containing ventral hernia at the umbilicus, doubtful clinical significance. IMPRESSION: 1. Acute pyelonephritis on the left. 2. 12 mm dominant left ovarian follicle. Trace free pelvic fluid. Dictated and Authenticated by: Mina Sanders MD. Ordering:ANI Diaz MD
[2021-09-28] MEDS: Lactated Ringers 1,000 ML 1000 ML IV (21:46)
[2021-09-28] MEDS: Ondansetron 4 MG/2 ML VIAL IVP (21:46)
[2021-09-28] MEDS: MORPHine 4 MG/ML SYR IVP (22:18)
[2021-09-28] MEDS: Ketorolac 30 MG/ML VIAL IVP (22:18)
--- NOTE | 2021-09-28 22:27 | W.PM.HP.N ---
Date of service: 09/28/21 Time of Service: 22:28 Assessment and Plan Assessment and plan (1) Pyelonephritis: Status: Acute Assessment and plan: Pyelonephritis. BP satisfactory at present, though has trended down somewhat, persistent sinus tachycardia likely more a reflection of fever at this point, though could represent component of early sepsis. Will continue antibiotics (Rocephin a good choice) and will aggressively hydrate, along with prn analgesics and antiemetics. Will trend lactate as well. I do not see a need for CIWA protocol based on history. Will offer prn nicotine patch at 7 mg level. Patient is Full Code. History of Present Illness History of Present Illness Chief Complaint: flank pain Narrative: 31 female reports feeling hot (did not take temp) and chills last night, then left flank pain radiating to back today. No dysuria or frequency. In ER findings of note for temp 39.9, sinus tachycardia, white count 11, pyuria (>50 wbc/hpf, no report of casts), modest bacteruria and CT showing signs consistent with left pyelonephritis. No stones. Cultures have been obtained and patient given 2 gm Rocephin. Lactate 2.0. While in ER patient also developed some nausea (vomited x one). In addition to Rocephin has also been given APAP, Toradol, MS, Zofran and IVF. I was asked to evaluate for admission. States her pain and nausea are better at this time. Drinks only very occasionally (note level 77 today), smokes 1/3 PPD (states she will not need a patch). Review of Systems Narrative: per HPI PFSH All Active Problems (Updated 09/28/21 @ 22:39 by Pasquale Ott MD) Pyelonephritis (Acute) Unwanted fertility (Acute) Chest pain (Acute) Surgical History pupil repair after trauma Family History Mother Alcohol abuse Father Neoplasm COLON Sister Substance abuse Social History Smoking/Tobacco Use Status: Current every day Tobacco Type: cigarettes Smoking risk assessment performed?: Yes Alcohol Intake: never Drug use: Never Substance use type: does not use Do you feel safe at home: Yes Do you feel safe in your relationship?: Yes Meds Allergies and Home Medications Allergies Allergy/AdvReac Type Severity Reaction Status Date / Time No Known Allergies Allergy Verified 09/28/21 20:51 Home Medications Medication Instructions Recorded Confirmed Type Unknown [No Known Home Meds] 09/28/21 09/28/21 History Exam Narrative Exam Narrative: 119/73, 106, 39.6, 30, 100 % RA. HEENT atraumatic; neck supple; lungs clear; heart tachy/regular; abdomen soft, mild LLQ tenderness w/o rebound; mild left CVAT; extremities w/o edema; neuro Ox3, lucid, appears tired, moves all 4s Results Labs Result diagrams: 09/28/21 18:35 09/28/21 18:35 Labs: Laboratory Results - last 24 hr 09/28/21 09/28/21 09/28/21 18:35 18:35 18:35 WBC 11.00 H RBC 4.55 Hgb 14.0 Hct 41.8 MCV 91.9 MCH 30.8 MCHC 33.5 RDW 12.6 Plt Count 290 MPV 9.8 Immature Gran % 0.5 Neutrophils % 83.1 Lymphocytes % 12.8 Monocytes % 2.6 Eosinophils % 0.8 Basophils % 0.2 Nucleated RBC % 0 Absolute Neutrophils 9.14 H Absolute Lymphocytes 1.41 Absolute Monocytes 0.29 Absolute Eosinophils 0.09 Absolute Basophils 0.02 VBG Lactate 2.0 H Sodium 141 Potassium 3.4 L Chloride 104 Carbon Dioxide 26.3 Anion Gap 10.7 BUN 8 Creatinine 1.0 Estimated GFR/1.73 m2 >= 60.00 Glucose 87 Calcium 8.7 Total Bilirubin 0.6 AST 23 ALT 32 Alkaline Phosphatase 79 Total Protein 7.8 Albumin 4.2 Lipase 68 Serum HCG, Qual Urine Color Urine Clarity Urine pH Ur Specific [place] Urine Protein Urine Ketones Urine Blood Urine Nitrite Urine Bilirubin Urine Urobilinogen Ur Leukocyte Esterase Urine RBC Urine WBC Ur Epithelial Cells Urine Crystals Urine Bacteria Urine Mucus Ur Culture Indicated? Urine Glucose Ethyl Alcohol 77.1 H COVID-19 Source SARS-CoV-2 (PCR) 09/28/21 09/28/21 09/28/21 18:35 18:59 19:20 WBC RBC Hgb Hct MCV MCH MCHC RDW Plt Count MPV Immature Gran % Neutrophils % Lymphocytes % Monocytes % Eosinophils % Basophils % Nucleated RBC % Absolute Neutrophils Absolute Lymphocytes Absolute Monocytes Absolute Eosinophils Absolute Basophils VBG Lactate Sodium Potassium Chloride Carbon Dioxide Anion Gap BUN Creatinine Estimated GFR/1.73 m2 Glucose Calcium Total Bilirubin AST ALT Alkaline Phosphatase Total Protein Albumin Lipase Serum HCG, Qual Negative Urine Color Yellow Urine Clarity Sl Cloudy Urine pH 7.0 Ur Specific [place] 1.020 Urine Protein Negative Urine Ketones Negative Urine Blood Small H Urine Nitrite Negative Urine Bilirubin Negative Urine Urobilinogen 0.2 Ur Leukocyte Esterase Moderate H Urine RBC 0-2 Urine WBC >50 H Ur Epithelial Cells Moderate Urine Crystals Negative Urine Bacteria Few Urine Mucus Negative Ur Culture Indicated? Yes Urine Glucose Negative Ethyl Alcohol COVID-19 Source Nasal/Nares SARS-CoV-2 (PCR) Negative Last Vital Signs Temp 39.6 C H 09/28/21 21:41 Pulse 106 H 09/28/21 21:00 Resp 30 H 09/28/21 21:01 BP 119/73 09/28/21 21:00 Pulse Ox 100 09/28/21 20:50 PAWSS Have you Been Recently Intoxicated or Drunk Within the Last 30 days?: No Have you Ever Experienced Previous Episodes of Alcohol Withdrawal?: No Have you ever Experienced Withdrawal Seizures?: No Have you ever Experienced Delirium Tremens(DT)s?: No Have you ever undergone Alcohol Rehabilitation Treatment (i.e, inpt ot outpatient treatment programs)?: No Have you ever Experienced Blackouts?: No Have you ever Combined Alcohol with other Downers within the last 90 days?: No Have you ever Combined Alcohol with any other Substance of Abuse during the last 90 days?: No Positive Blood Alcohol level on Presentation? [PCS.BAL]: No Evidence of Increased Autonomic Activity (i.e. HR>120, tremor, sweating, agitation, nausea)?: No Result: 0
[2021-09-28 23:04] LABS: Lactate 0.7 mmol/L (0.6-1.4)
[2021-09-28] MEDS: Normal Saline 500 ML 1000 ML IV (23:44)
[2021-09-29] VITALS (172 sets, daily range): BP systolic 83–118; BP diastolic 38–86; PULSE 64–116; RESP 12–75; TEMP 35.5–39.3; O2SAT 85–100
--- NOTE | 2021-09-29 | DI.US_ITS ---
Exam(s) US ABDOMEN RENAL EXAM: US ABDOMEN RENAL CLINICAL HISTORY: pyelonephritis; abnormal pancreas TECHNIQUE: Ultrasound of complete upper abdomen performed using standard protocol. COMPARISON: CT CT ABDOMEN PELVIS W from 09/28/2021 FINDINGS: There is no ascites evident. LIVER: There are no hepatic lesions evident nor obvious dilatation of intrahepatic ducts. GALLBLADDER/BILIARY: There are no shadowing gallstones. No gallbladder wall edema nor pericholecysti c fluid. Possible small polyp. The common hepatic duct isnot obviously dilated but is partially obscured by bowel gas. PANCREAS: There is no evidence of pancreatic mass nor dilatation of the pancreatic duct. However, pl ease note that the orientation of the mass seen in the pancreas on the recent CT scan would be diffic ult to appreciate on ultrasound examination. Recommend further pancreatic imaging with multiplanar M RI. SPLEEN: The spleen is not enlarged and there are no intrasplenic lesions evident. KIDNEYS:Kidneys exhibit normal size with no evidence of solid mass, calculus, nor hydronephrosis. No cortical cysts evident. Urinary bladder prevoid volume = 473 cc No obvious mass in the urinary bladder. No diverticuli. No calculi seen within the urinary bladder. Postvoid volume = patient's condition did not allow for measuring postvoid residual. Both ureterovesical jets in the urinary bladder were identified. ABDOMINAL AORTA: There is no evidence of abdominal aortic aneurysm. IVC: Normal diameter where visualized. IMPRESSION: 1. The pancreatic finding described on the recent CT scan projects off the superior aspect of the pa ncreatic body and therefore would be difficult visualize with ultrasound. For this reason I recommen d follow-up MRI of the pancreas with IV contrast. 2. Possible small polyp in the gallbladder. No shadowing calculi. 3. There is no ascites. 4. other findings as above. DATA REPOSITORY:
[2021-09-29] MEDS: MORPHine 4 MG/ML SYR IVP ×6 (02:43→22:50)
[2021-09-29] MEDS: Normal Saline 500 ML 1000 ML IV (05:58)
[2021-09-29 06:18] LABS: HCT 28.8 % (36.0-46.0); HGB 9.3 g/dL (11.2-15.7); MCH 30.8 pg (27.0-33.0); MCHC 32.3 % (32.0-36.0); MCV 95.4 fL (80-95); MPV 9.9 fL (8.0-11.0); Platelet Count 202 10^3/uL (130-400); RBC 3.02 10^6/uL (3.93-5.22); RDW 12.9 % (11.7-14.6); WBC 9.06 10^3/uL (4.4-10.8)
[2021-09-29 06:28] LABS: Anion Gap 8.2 mmol/L (3-11); BUN 7 mg/dL (7-18); CO2 24.8 mmol/L (21.0-32.0); CREATININE 0.7 mg/dL (0.55-1.02); Calcium 6.9 mg/dL (8.5-10.1); Chloride 109 mmol/L (98-107); Glucose 94 mg/dL (74-106); Potassium 3.2 mmol/L (3.5-5.1); Sodium 142 mmol/L (136-145)
[2021-09-29] MEDS: Lactated Ringers 1,000 ML 200 ML IV ×3 (07:20→19:23)
[2021-09-29] MEDS: Normal Saline Flush 10 ML SYR IVP (07:36)
[2021-09-29] MEDS: Ketorolac 15 MG/ML VIAL IVP (07:36)
[2021-09-29] MEDS: cefTRIAXone 1 GM/50 ML BAG IVPB ×2 (09:01→20:01)
--- NOTE | 2021-09-29 09:34 | W.PM.PROGNOT ---
Date of Service Date of service: 09/29/21 Time of Service: 09:34 Assessment and Plan Assessment and plan (1) Pyelonephritis: Status: Acute Assessment and plan: continue Rocephin 1 gm iv q12h and repeat her blood cultures tomorrow and if necessary repeat in 2 days. Once blood cultures have cleared, then can switch to oral antibiotics. Her blood and urine cultures both are growing gram negative rods. I will also check renal US. 30 minutes CC time spent evaluating the patient (interview; exam; review of data), discussion w/ Dr. Ott and patient's nurse. (2) Sepsis: Status: Acute Assessment and plan: as above. She seems to have responded to iv fluids and antibiotics. She has not need vasopressors. If her BP remains stable through the day, she can transfer to med/surg floor this afternoon (3) Hypokalemia: Status: Acute Assessment and plan: replete and recheck; check magnesium level (4) Hypocalcemia: Status: Acute Assessment and plan: unclear whether this is dilutional or spurious result. recheck both total and ionized calcium (5) Anemia: Status: Suspected Assessment and plan: her blood count dropped 5 gm from 14 gm to 9.3 gm. I suspect this is dilutional as she has no hx of bleeding. I will repeat this afternoon to verify. Subjective Subjective Interval history since last seen: Patient was admitted w/ left pyelonephritis and sepsis. She developed acute left flank pain and chills two days ago not associated w/ any dysuria or hematuria. She has no hx of pyelonephritis nor kidney stones nor recurrent UTI. Renal CT did not show any hydronephrosis, abscess or stones but demonstrated left lower pole pyelonephritis. Also incidental finding of isodense 1.1 x 1.7 cm off superior aspect of her pancreas which was read by radiology as either an anatomic variant or a mass and follow up MRI is recommended. I will start w/ abdominal ultrasound and also check her pancreas as well as her kidneys. Repeat BMP this morning demonstrates significant hypocalcemia and hypokalemia which has not been treated. She has received approximately 3400 mL in fluid boluses (saline and LR). She is complaining of tingling in her feet but not her hands. Her albumin level was 4.2. I think that this is either lab error or d/t dilution. I will repeat her BMP and get ionized calcium level. Exam Narrative Exam Narrative: Young female sitting up in bed talking on her phone. She is comfortable as long as she is sitting in bed but feels dizzy when she stands up. She still has some left flank pain but this is improved Lungs: clear Heart: RRR L. flank rough planer tender to palpation and left upper quadrant is tender to palpation Lower extremities no cyanosis or edema; no asterixis of her hands w/ dorsiflexion. I could not elicit [place]'s sign nor elicit and carpal spasms Objective Last Vital Signs Temp 36.1 C L 09/29/21 08:39 Pulse 81 09/29/21 08:39 Resp 16 09/29/21 08:16 BP 108/67 09/29/21 08:39 Pulse Ox 98 09/29/21 08:39 Laboratory Results - last 24 hr 09/28/21 09/28/21 09/28/21 18:35 18:35 18:35 WBC 11.00 H RBC 4.55 Hgb 14.0 Hct 41.8 MCV 91.9 MCH 30.8 MCHC 33.5 RDW 12.6 Plt Count 290 MPV 9.8 Immature Gran % 0.5 Neutrophils % 83.1 Lymphocytes % 12.8 Monocytes % 2.6 Eosinophils % 0.8 Basophils % 0.2 Nucleated RBC % 0 Absolute Neutrophils 9.14 H Absolute Lymphocytes 1.41 Absolute Monocytes 0.29 Absolute Eosinophils 0.09 Absolute Basophils 0.02 VBG Lactate 2.0 H Sodium 141 Potassium 3.4 L Chloride 104 Carbon Dioxide 26.3 Anion Gap 10.7 BUN 8 Creatinine 1.0 Estimated GFR/1.73 m2 >= 60.00 Glucose 87 Calcium 8.7 Total Bilirubin 0.6 AST 23 ALT 32 Alkaline Phosphatase 79 Total Protein 7.8 Albumin 4.2 Lipase 68 Serum HCG, Qual Urine Color Urine Clarity Urine pH Ur Specific [place] Urine Protein Urine Ketones Urine Blood Urine Nitrite Urine Bilirubin Urine Urobilinogen Ur Leukocyte Esterase Urine RBC Urine WBC Ur Epithelial Cells Urine Crystals Urine Bacteria Urine Mucus Ur Culture Indicated? Urine Glucose Ethyl Alcohol 77.1 H COVID-19 Source SARS-CoV-2 (PCR) 09/28/21 09/28/21 09/28/21 18:35 18:59 19:20 WBC RBC Hgb Hct MCV MCH MCHC RDW Plt Count MPV Immature Gran % Neutrophils % Lymphocytes % Monocytes % Eosinophils % Basophils % Nucleated RBC % Absolute Neutrophils Absolute Lymphocytes Absolute Monocytes Absolute Eosinophils Absolute Basophils VBG Lactate Sodium Potassium Chloride Carbon Dioxide Anion Gap BUN Creatinine Estimated GFR/1.73 m2 Glucose Calcium Total Bilirubin AST ALT Alkaline Phosphatase Total Protein Albumin Lipase Serum HCG, Qual Negative Urine Color Yellow Urine Clarity Sl Cloudy Urine pH 7.0 Ur Specific [place] 1.020 Urine Protein Negative Urine Ketones Negative Urine Blood Small H Urine Nitrite Negative Urine Bilirubin Negative Urine Urobilinogen 0.2 Ur Leukocyte Esterase Moderate H Urine RBC 0-2 Urine WBC >50 H Ur Epithelial Cells Moderate Urine Crystals Negative Urine Bacteria Few Urine Mucus Negative Ur Culture Indicated? Yes Urine Glucose Negative Ethyl Alcohol COVID-19 Source Nasal/Nares SARS-CoV-2 (PCR) Negative 09/28/21 09/29/21 09/29/21 23:01 06:10 06:10 WBC 9.06 RBC 3.02 L Hgb 9.3 L D Hct 28.8 L D MCV 95.4 H D MCH 30.8 MCHC 32.3 RDW 12.9 Plt Count 202 MPV 9.9 Immature Gran % Neutrophils % Lymphocytes % Monocytes % Eosinophils % Basophils % Nucleated RBC % Absolute Neutrophils Absolute Lymphocytes Absolute Monocytes Absolute Eosinophils Absolute Basophils VBG Lactate 0.7 Sodium 142 Potassium 3.2 L Chloride 109 H Carbon Dioxide 24.8 Anion Gap 8.2 BUN 7 Creatinine 0.7 Estimated GFR/1.73 m2 >= 60.00 Glucose 94 Calcium 6.9 L Total Bilirubin AST ALT Alkaline Phosphatase Total Protein Albumin Lipase Serum HCG, Qual Urine Color Urine Clarity Urine pH Ur Specific [place] Urine Protein Urine Ketones Urine Blood Urine Nitrite Urine Bilirubin Urine Urobilinogen Ur Leukocyte Esterase Urine RBC Urine WBC Ur Epithelial Cells Urine Crystals Urine Bacteria Urine Mucus Ur Culture Indicated? Urine Glucose Ethyl Alcohol COVID-19 Source SARS-CoV-2 (PCR) PAWSS Have you Been Recently Intoxicated or Drunk Within the Last 30 days?: No Have you Ever Experienced Previous Episodes of Alcohol Withdrawal?: No Have you ever Experienced Withdrawal Seizures?: No Have you ever Experienced Delirium Tremens(DT)s?: No Have you ever undergone Alcohol Rehabilitation Treatment (i.e, inpt ot outpatient treatment programs)?: No Have you ever Experienced Blackouts?: No Have you ever Combined Alcohol with other Downers within the last 90 days?: No Have you ever Combined Alcohol with any other Substance of Abuse during the last 90 days?: No Positive Blood Alcohol level on Presentation? [PCS.BAL]: No Evidence of Increased Autonomic Activity (i.e. HR>120, tremor, sweating, agitation, nausea)?: No Result: 0
[2021-09-29 09:50] LABS: Lab Add On Test DONE
[2021-09-29 10:03] LABS: Calcium 7.6 mg/dL (8.5-10.1); Magnesium 1.9 mg/dL (1.8-2.4)
[2021-09-29] MEDS: Potassium Chloride 20 MEQ TABCR 40 MEQ PO (10:09)
--- NOTE | 2021-09-29 10:09 | PDOC.CMIN ---
- If Service Date Differs Date of service: 09/29/21 Time of Service: 10:09 Care Management Initial Assess REASON FOR HOSPITALIZATION:: Pyelonephritis PAST MEDICAL HISTORY/PAST SURGICAL HISTORY:: All Active Problems. Pyelonephritis (Acute). Unwanted fertility (Acute). Chest pain (Acute). Surgical History. pupil repair after trauma PREVIOUS FUNCTIONAL STATUS/SOCIAL/FAMILY SUPPORTS:: Donna lives in [place] with her four children. She recently relocated to this area from [place]. She works at [employer] in [place]. She is independent at baseline. CURRENT FUNCTIONAL STATUS:: Donna was sitting up in bed when CM met with her. She reported that she is doing well, and feels that she is receiving good care. CM discussed her PCP, as she does not have one listed currently. She stated that she hasn't established with a PCP since moving to the area. CM offered to set up a follow up appointment with the correspondence dictator MD from the day she was at the ED, which she was agreeable to. CM explained that she can choose to establish after the first follow up, or she can choose any local PCP to establish with. She did not express any further concerns. CM will continue to follow. ADVANCE DIRECTIVES:: None on file. Has patient been provided with info about the portal/API?: Yes Did the patient sign up for the portal?: No CODE STATUS:: Full Code INSURANCE COVERAGE / FINANCIAL ISSUES:: [facility] CURRENT HOME/COMMUNITY SERVICES/EQUIPMENT:: No current services or equipment. PRIMARY CARE PHYSICIAN:: No local, will set up f/u with [facility]Doc from ED visit. POTENTIAL DISCHARGE NEEDS:: Evaluations for further needs, follow up appointments. PATIENT/FAMILY EDUCATION NEEDS:: Review discharge instructions and limitations, discussion of self care needs including ask me three. ANTICIPATED BARRIERS TO DISCHARGE:: None identified at this time. TRANSPORTATION:: Via private vehicle by family. PLAN:: Anticipate Donna will return home when medically cleared. She will be driven home by family when ready. She will follow up with her PCP and discharge plan of care. CM will continue to follow.
[2021-09-29] MEDS: ACETAMINOPHEN 1,000 MG/100 ML BTL 400 MG IVPB ×2 (10:10→20:43)
[2021-09-29 10:26] LABS: Procalcitonin 0.9 ng/mL
--- NOTE | 2021-09-29 11:55 | PHA.REVIEW ---
Pharmacy Admission Review - Admission Clinical Review (Last Reviewed 09/28/21 @ 22:35 by Pasquale Ott MD) Hypocalcemia (Acute) Hypokalemia (Acute) Sepsis (Acute) Pyelonephritis (Acute) No Known Allergies Allergy (Verified 09/28/21 20:51) Resuscitation Status Full Code Height 5 ft 7 in Weight 101 kg - Renal Dosing Renal Dosing: BUN 7 mg/dL (7-18) 09/29/21 06:10 Creatinine 0.7 mg/dL (0.55-1.02) 09/29/21 06:10 Medications needing adjustments: Reviewed (Crcl ~143.6 mL/min using adjusted body weight) - Anticoagulation Anticoagulation: Hgb 9.3 g/dL (11.2-15.7) L D 09/29/21 06:10 Hct 28.8 % (36.0-46.0) L D 09/29/21 06:10 Plt Count 202 10^3/uL (130-400) 09/29/21 06:10 Creatinine 0.7 mg/dL (0.55-1.02) 09/29/21 06:10 DVT Prophylaxis: Reviewed (SCDs ordered, anemia per progress note (provider suspects this is dilutional), repeat labs this afternoon) Therapeutic Anticoagulation: N/A - Opiate Usage Evaluate Pain Scale/Pains Meds: Reviewed Scheduled Bowel Reg ordered if on Opiates?: No (will mention to provider) - Relevant Labs Sodium 142 mmol/L (136-145) 09/29/21 06:10 Potassium 3.2 mmol/L (3.5-5.1) L 09/29/21 06:10 Chloride 109 mmol/L (98-107) H 09/29/21 06:10 Magnesium 1.9 mg/dL (1.8-2.4) 09/29/21 09:40 Magnesium Cancelled 09/29/21 09:40 Electrolytes, C-Reactive P, ESR: Reviewed (K+ replacement ordered) - DM Control DM Control: Glucose 94 mg/dL (74-106) 09/29/21 06:10 Insulin Dosing: N/A - Heart Failure/[place] EF%, SHOAIB's, B-Blockers, Diuretics: N/A - BP Control BP Control: Blood Pressure [Left Arm] 108/67 Blood Pressure 92/50 Blood Pressure 97/65 Blood Pressure 92/50 Blood Pressure 94/53 Blood Pressure 97/49 Blood Pressure 89/47 Blood Pressure 88/44 Blood Pressure 83/44 Blood Pressure 89/47 Blood Pressure 86/38 Blood Pressure 95/53 If elevated: Reviewed (BP has been low most of admission so far but was within normal limits on the most recent check.) - Qtc Review If Elevated: N/A - IV to PO Switch IV Medications: Intervened (Will ask provider about changing acetaminophen to PO as pt is taking other PO meds,) - Home Meds Home Med List reviewed: Reviewed (no known home meds listed) - Current meds Current Medication Order Review: Intervened (Discontinued DI meds that had already been given.) - Comments Comments/Follow Ups: Watch BP, K+, H/H, labs, for culture results and for med changes (IV to PO, possible BM meds, possible anticoagulation). Antibiotic Activity - Pharmacy Antibiotic Review Pharmacy Antibiotic Activity: C/S review (Urine culture growing E.coli, one blood culture is pending the other shows gram negative rods from the gram stain. Ceftriaxone ordered for pyleonephritis)
[2021-09-29] MEDS: Potassium Chloride 20 MEQ TABCR PO ×2 (13:30→20:00)
[2021-09-29 14:26] LABS: Abs Immature Grans 0.04 10^3/uL (0.0-0.06); Absolute Basophil Count 0.04 10^3/uL (0.0-0.2); Absolute Eosinophil Count 0.11 10^3/uL (0.0-0.7); Absolute Lymphocyte Count 1.12 10^3/uL (1.2-3.4); Absolute Monocyte Count 0.99 10^3/uL (0.1-0.8); Absolute Neutrophil Count 6.27 10^3/uL (1.2-6.7); Basophils % 0.5; Eosinophils % 1.3; HCT 33.5 % (36.0-46.0); HGB 11.2 g/dL (11.2-15.7); Immature Grans % 0.5; Lymphocytes % 13.1; MCH 31.5 pg (27.0-33.0); MCHC 33.4 % (32.0-36.0); MCV 94.4 fL (80-95); MPV 9.9 fL (8.0-11.0); Monocytes % 11.6; Nucleated RBC 0 %; Platelet Count 214 10^3/uL (130-400); RBC 3.55 10^6/uL (3.93-5.22); RDW 12.7 % (11.7-14.6); RDW-SD 44.4 fL; WBC 8.57 10^3/uL (4.4-10.8)
[2021-09-29 14:38] LABS: Anion Gap 5.9 mmol/L (3-11); BUN 6 mg/dL (7-18); CO2 25.1 mmol/L (21.0-32.0); CREATININE 0.7 mg/dL (0.55-1.02); Calcium 7.7 mg/dL (8.5-10.1); Chloride 110 mmol/L (98-107); Glucose 86 mg/dL (74-106); Potassium 3.7 mmol/L (3.5-5.1); Sodium 141 mmol/L (136-145)
[2021-09-29 17:08] LABS: Ionized Calcium 1.04 mmol/L (1.12-1.32)
[2021-09-29] MEDS: Ondansetron 4 MG/2 ML VIAL IVP (17:37)
[2021-09-30] VITALS (35 sets, daily range): BP systolic 88–115; BP diastolic 45–77; PULSE 58–106; RESP 16–22; TEMP 36–37.4; O2SAT 90–98
[2021-09-30] MEDS: MORPHine 4 MG/ML SYR IVP ×6 (02:40→21:52)
[2021-09-30] MEDS: Lactated Ringers 1,000 ML 100 ML IV ×3 (02:50→21:53)
[2021-09-30 06:51] LABS: Abs Immature Grans 0.04 10^3/uL (0.0-0.06); Absolute Basophil Count 0.02 10^3/uL (0.0-0.2); Absolute Eosinophil Count 0.16 10^3/uL (0.0-0.7); Absolute Lymphocyte Count 1.21 10^3/uL (1.2-3.4); Absolute Monocyte Count 1.15 10^3/uL (0.1-0.8); Absolute Neutrophil Count 6.41 10^3/uL (1.2-6.7); Basophils % 0.2; Eosinophils % 1.8; HCT 36.5 % (36.0-46.0); HGB 11.9 g/dL (11.2-15.7); Immature Grans % 0.4; Lymphocytes % 13.5; MCH 31.1 pg (27.0-33.0); MCHC 32.6 % (32.0-36.0); MCV 95.3 fL (80-95); MPV 10.1 fL (8.0-11.0); Monocytes % 12.8; Neutrophils % 71.3; Nucleated RBC 0 %; Platelet Count 250 10^3/uL (130-400); RBC 3.83 10^6/uL (3.93-5.22); RDW 12.3 % (11.7-14.6); RDW-SD 43.2 fL; WBC 8.99 10^3/uL (4.4-10.8)
[2021-09-30 07:04] LABS: Anion Gap 7.3 mmol/L (3-11); BUN 4 mg/dL (7-18); CO2 27.7 mmol/L (21.0-32.0); CREATININE 0.8 mg/dL (0.55-1.02); Calcium 7.9 mg/dL (8.5-10.1); Chloride 103 mmol/L (98-107); Glucose 88 mg/dL (74-106); Potassium 3.4 mmol/L (3.5-5.1); Sodium 138 mmol/L (136-145)
[2021-09-30 07:32] LABS: Lab Add On Test DONE
[2021-09-30] MEDS: Normal Saline Flush 10 ML SYR IVP ×2 (07:42→21:53)
[2021-09-30] MEDS: Calcium Carbonate 1.5 GM TAB 3 GM PO ×2 (07:42→18:51)
[2021-09-30] MEDS: Potassium Chloride 20 MEQ TABCR 40 MEQ PO ×2 (07:42→18:50)
[2021-09-30] MEDS: ACETAMINOPHEN 1,000 MG/100 ML BTL 400 MG IVPB (07:43)
[2021-09-30 07:44] LABS: Albumin 2.9 g/dL (3.4-5.0); Magnesium 1.7 mg/dL (1.8-2.4)
--- NOTE | 2021-09-30 08:39 | W.PM.PROGNOT ---
Date of Service Date of service: 09/30/21 Time of Service: 08:39 Assessment and Plan Assessment and plan (1) Sepsis: Status: Acute Assessment and plan: Due to pyelonephritis, present on admission. Blood cx as well as urine C&S are growing E. Coli. Sensitivities pending. BPs better - not requiring pressors, fluid responsive. Discussed with pharmacy - changed ceftriaxone dose to 2 grams daily. No longer in ICU status. (2) Pyelonephritis: Status: Acute Assessment and plan: As above (3) E coli bacteremia: Status: Acute Assessment and plan: As above (4) Hypokalemia: Status: Acute Assessment and plan: Replete; also replete magnesium and cacium. (5) Hypocalcemia: Status: Acute Assessment and plan: Replete (6) DVT prophylaxis: Status: Acute Assessment and plan: SCDs. Chemical DVT ppx is not required in this 31 year old ambulatory patient. (7) Discharge planning issues: Status: Acute Assessment and plan: Full code Continues to require hospitalization Subjective Subjective Interval history since last seen: C/o L flank pain, which hurts on deep inspiration as well. Denies dizziness, chest pain except on deep inspiration. No shortness of breath. Did have n/v last evening, but not now. Exam Narrative Exam Narrative: General: Pleasant female who appears uncomfortable, A&Ox3 HEENT: EOMI, MMM Heart: RRR, no m/r/g Lungs: CTAB but diminished at B bases Abdomen: soft, nontender, nondistended; L flank tenderness Extremities: no edema, +1 pedal pulses B Objective Last Vital Signs Temp 37.4 C 09/30/21 07:35 Pulse 99 H 09/30/21 07:34 Resp 22 09/29/21 21:00 BP 114/72 09/30/21 07:35 Pulse Ox 95 09/30/21 07:34 Laboratory Results - last 24 hr 09/29/21 09/29/21 09/29/21 09:40 09:40 09:40 WBC RBC Hgb Hct MCV MCH MCHC RDW Plt Count MPV Immature Gran % Neutrophils % Lymphocytes % Monocytes % Eosinophils % Basophils % Nucleated RBC % Absolute Neutrophils Absolute Lymphocytes Absolute Monocytes Absolute Eosinophils Absolute Basophils Sodium Potassium Chloride Carbon Dioxide Anion Gap BUN Creatinine Estimated GFR/1.73 m2 Glucose Calcium 7.6 L Ionized Calcium 1.04 L Magnesium 1.9 Cancelled C-Reactive Protein Albumin Procalcitonin Add-On Test Request Patient ABO/Rh Antibody Screen 09/29/21 09/29/21 09/29/21 09:40 09:40 09:40 WBC RBC Hgb Hct MCV MCH MCHC RDW Plt Count MPV Immature Gran % Neutrophils % Lymphocytes % Monocytes % Eosinophils % Basophils % Nucleated RBC % Absolute Neutrophils Absolute Lymphocytes Absolute Monocytes Absolute Eosinophils Absolute Basophils Sodium Potassium Chloride Carbon Dioxide Anion Gap BUN Creatinine Estimated GFR/1.73 m2 Glucose Calcium Ionized Calcium Magnesium C-Reactive Protein Albumin Procalcitonin 0.9 Add-On Test Request DONE Patient ABO/Rh O Negative Antibody Screen NEGATIVE 09/29/21 09/29/21 09/30/21 14:10 14:10 06:20 WBC 8.57 8.99 RBC 3.55 L 3.83 L Hgb 11.2 11.9 Hct 33.5 L 36.5 MCV 94.4 95.3 H MCH 31.5 31.1 MCHC 33.4 32.6 RDW 12.7 12.3 Plt Count 214 250 MPV 9.9 10.1 Immature Gran % 0.5 0.4 Neutrophils % 73.0 71.3 Lymphocytes % 13.1 13.5 Monocytes % 11.6 12.8 Eosinophils % 1.3 1.8 Basophils % 0.5 0.2 Nucleated RBC % 0 0 Absolute Neutrophils 6.27 6.41 Absolute Lymphocytes 1.12 L 1.21 Absolute Monocytes 0.99 H 1.15 H Absolute Eosinophils 0.11 0.16 Absolute Basophils 0.04 0.02 Sodium 141 Potassium 3.7 Chloride 110 H Carbon Dioxide 25.1 Anion Gap 5.9 BUN 6 L Creatinine 0.7 Estimated GFR/1.73 m2 >= 60.00 Glucose 86 Calcium 7.7 L Ionized Calcium Magnesium C-Reactive Protein Albumin Procalcitonin Add-On Test Request Patient ABO/Rh Antibody Screen 09/30/21 09/30/21 09/30/21 06:20 06:20 06:20 WBC RBC Hgb Hct MCV MCH MCHC RDW Plt Count MPV Immature Gran % Neutrophils % Lymphocytes % Monocytes % Eosinophils % Basophils % Nucleated RBC % Absolute Neutrophils Absolute Lymphocytes Absolute Monocytes Absolute Eosinophils Absolute Basophils Sodium 138 Potassium 3.4 L Chloride 103 Carbon Dioxide 27.7 Anion Gap 7.3 BUN 4 L Creatinine 0.8 Estimated GFR/1.73 m2 >= 60.00 Glucose 88 Calcium 7.9 L Ionized Calcium Magnesium 1.7 L C-Reactive Protein 14.40 H Albumin 2.9 L Procalcitonin Add-On Test Request DONE Patient ABO/Rh Antibody Screen PAWSS Have you Been Recently Intoxicated or Drunk Within the Last 30 days?: No Have you Ever Experienced Previous Episodes of Alcohol Withdrawal?: No Have you ever Experienced Withdrawal Seizures?: No Have you ever Experienced Delirium Tremens(DT)s?: No Have you ever undergone Alcohol Rehabilitation Treatment (i.e, inpt ot outpatient treatment programs)?: No Have you ever Experienced Blackouts?: No Have you ever Combined Alcohol with other Downers within the last 90 days?: No Have you ever Combined Alcohol with any other Substance of Abuse during the last 90 days?: No Positive Blood Alcohol level on Presentation? [PCS.BAL]: No Evidence of Increased Autonomic Activity (i.e. HR>120, tremor, sweating, agitation, nausea)?: No Result: 0
[2021-09-30] MEDS: cefTRIAXone 2 GM/50 ML BAG IVPB (10:00)
[2021-09-30] MEDS: MAGNESIUM SULFATE 2 GM/50 ML BAG IVPB (10:04)
--- NOTE | 2021-09-30 10:08 | PDOC.CMPRO ---
- If Service Date Differs Date of service: 09/30/21 Time of Service: 10:08 Care Management Progress Note S/O: Donna was sleeping when CM attempted to meet with her. CM will set up an appointment with AZEB Burt at [facility], upon her discharge. No other concerns were noted. CM talked to her RN, who stated that she has had a lot of pain, and was recently medicated, therefore CM did not wake her. CM will continue to follow. A: Donna is a 31 year old female admitted to [facility] on 09/28/21 for pyelonephritis. P: Anticipate Donna will return home when medically cleared. She will be driven home by family when ready. She will follow up with her PCP and discharge plan of care. CM will continue to follow.
[2021-09-30] MEDS: Ketorolac 30 MG/ML VIAL IVP ×3 (10:18→23:26)
[2021-09-30] MEDS: Acetaminophen 500 MG TAB 1000 MG PO (18:51)
[2021-10-01] VITALS (9 sets, daily range): BP systolic 110–120; BP diastolic 66–81; PULSE 53–72; RESP 18; TEMP 36.3–36.4; O2SAT 96–100
[2021-10-01] MEDS: MORPHine 4 MG/ML SYR IVP (06:46)
[2021-10-01 06:50] LABS: Abs Immature Grans 0.03 10^3/uL (0.0-0.06); Absolute Basophil Count 0.03 10^3/uL (0.0-0.2); Absolute Eosinophil Count 0.27 10^3/uL (0.0-0.7); Absolute Lymphocyte Count 1.22 10^3/uL (1.2-3.4); Absolute Monocyte Count 0.84 10^3/uL (0.1-0.8); Basophils % 0.5; Eosinophils % 4.4; HCT 34.1 % (36.0-46.0); Immature Grans % 0.5; Lymphocytes % 19.7; MCH 30.7 pg (27.0-33.0); MCHC 32.3 % (32.0-36.0); MCV 95.3 fL (80-95); MPV 9.8 fL (8.0-11.0); Monocytes % 13.6; Neutrophils % 61.3; Nucleated RBC 0 %; Platelet Count 230 10^3/uL (130-400); RBC 3.58 10^6/uL (3.93-5.22); RDW 12.2 % (11.7-14.6); WBC 6.19 10^3/uL (4.4-10.8)
[2021-10-01 06:52] LABS: Absolute Neutrophil Count 3.79 10^3/uL (1.2-6.7)
[2021-10-01 07:02] LABS: BUN 6 mg/dL (7-18); C-Reactive Protein 8.77 mg/dL (0.0-0.3); CREATININE 0.8 mg/dL (0.55-1.02); Calcium 8.4 mg/dL (8.5-10.1); Chloride 106 mmol/L (98-107); Glucose 78 mg/dL (74-106); Magnesium 1.8 mg/dL (1.8-2.4); Potassium 4.1 mmol/L (3.5-5.1); Sodium 142 mmol/L (136-145)
[2021-10-01 07:22] LABS: Procalcitonin 0.3 ng/mL
[2021-10-01] MEDS: Potassium Chloride 20 MEQ TABCR 40 MEQ PO ×2 (07:51→20:38)
[2021-10-01] MEDS: Normal Saline Flush 10 ML SYR IVP ×2 (07:52→20:45)
[2021-10-01] MEDS: Calcium Carbonate 1.5 GM TAB 3 GM PO ×2 (07:52→20:38)
[2021-10-01] MEDS: Ketorolac 30 MG/ML VIAL IVP (07:52)
[2021-10-01] MEDS: Lactated Ringers 1,000 ML 100 ML IV (07:58)
[2021-10-01] MEDS: oxyCODONE 5 mg/Acetaminophen 325 mg TAB 1 TAB PO (09:39)
[2021-10-01] MEDS: Acetaminophen 500 MG TAB 650 MG PO (09:40)
[2021-10-01] MEDS: cefTRIAXone 2 GM/50 ML BAG IVPB (09:41)
--- NOTE | 2021-10-01 11:45 | W.PM.PROGNOT ---
Date of Service Date of service: 10/01/21 Time of Service: 08:40 Assessment and Plan Assessment and plan (1) Sepsis: Status: Acute Assessment and plan: Due to E. Coli pyelonephritis with bacteremia, present on admission. Blood cx as well as urine C&S on admission are growing E. Coli (pansensitive). Repeat blood cultures from 09/30/21 are negative. BPs normalized. Continue ceftriaxone 2 grams IV daily. (2) Pyelonephritis: Status: Acute Assessment and plan: As above Attempt to transition pain meds to PO. (3) E coli bacteremia: Status: Acute Assessment and plan: As above (4) Hypokalemia: Status: Resolved Assessment and plan: Recheck in am (5) Hypocalcemia: Status: Acute Assessment and plan: Replete (6) DVT prophylaxis: Status: Acute Assessment and plan: SCDs. Chemical DVT ppx is not required in this 31 year old ambulatory patient. (7) Discharge planning issues: Status: Acute Assessment and plan: Full code Anticipate discharge home tomorrow Subjective Subjective Interval history since last seen: Donna does not think that her pain is any better today and feels about the same, though she admits that she had not had a fever in 24 hrs. She denies dizziness, chest pain, shortness of breath, nausea. She has been ambulating and showered yesterday. Exam Narrative Exam Narrative: General: Pleasant female who appears uncomfortable, A&Ox3 HEENT: EOMI, MMM Heart: RRR, no m/r/g Lungs: CTAB but diminished at B bases Abdomen: soft, nondistended; L flank tenderness and fullness Extremities: no edema, +1 pedal pulses B Objective Last Vital Signs Temp 36.4 C L 10/01/21 07:24 Pulse 68 10/01/21 07:24 Resp 18 10/01/21 07:24 BP 118/75 10/01/21 06:49 Pulse Ox 100 10/01/21 07:24 Laboratory Results - last 24 hr 10/01/21 10/01/21 10/01/21 06:30 06:30 06:30 WBC 6.19 D RBC 3.58 L Hgb 11.0 L Hct 34.1 L MCV 95.3 H MCH 30.7 MCHC 32.3 RDW 12.2 Plt Count 230 MPV 9.8 Immature Gran % 0.5 Neutrophils % 61.3 Lymphocytes % 19.7 Monocytes % 13.6 Eosinophils % 4.4 Basophils % 0.5 Nucleated RBC % 0 Absolute Neutrophils 3.79 Absolute Lymphocytes 1.22 Absolute Monocytes 0.84 H Absolute Eosinophils 0.27 Absolute Basophils 0.03 Sodium 142 Potassium 4.1 D Chloride 106 Carbon Dioxide 27.0 Anion Gap 9.0 BUN 6 L Creatinine 0.8 Estimated GFR/1.73 m2 >= 60.00 Glucose 78 Calcium 8.4 L Magnesium 1.8 C-Reactive Protein 8.77 H Procalcitonin 0.3 PAWSS Have you Been Recently Intoxicated or Drunk Within the Last 30 days?: No Have you Ever Experienced Previous Episodes of Alcohol Withdrawal?: No Have you ever Experienced Withdrawal Seizures?: No Have you ever Experienced Delirium Tremens(DT)s?: No Have you ever undergone Alcohol Rehabilitation Treatment (i.e, inpt ot outpatient treatment programs)?: No Have you ever Experienced Blackouts?: No Have you ever Combined Alcohol with other Downers within the last 90 days?: No Have you ever Combined Alcohol with any other Substance of Abuse during the last 90 days?: No Positive Blood Alcohol level on Presentation? [PCS.BAL]: No Evidence of Increased Autonomic Activity (i.e. HR>120, tremor, sweating, agitation, nausea)?: No Result: 0
--- NOTE | 2021-10-01 14:49 | NUR.NOTE ---
Patient will try Tylenol 1,000 mg PO every 8hrs and Ibuprofen 600mg PO every 8 hours alternating every 4 hours to keep pain ideally between 1-4/10. Patient would like to avoid narcotics as much as able. Dr. Hawthorne states to have the morphine or percocet reordered as needed. Patient was also able to go outdoor in a wheelchair with Vidhi Benson approved per Andrae Michaels, and myself. Patient states she feels tabitha much better after getting some sunshine. Patient is now soaking her feet in warm water and reports her pain is 3/10. Nursing Note:
[2021-10-01] MEDS: Ibuprofen 600 MG TAB PO (15:52)
--- NOTE | 2021-10-01 18:26 | PDOC.CMPRO ---
- If Service Date Differs Date of service: 10/01/21 Time of Service: 18:26 Care Management Progress Note S/O: Donna was sitting up in a chair in her room when CM met with her. She reported that she is feeling much better today. She has been ambulating more, and has been in less pain. Per RN, her pain medication is now oral tylenol and ibuprofen. She remains on IV abx, but will likely transition to oral tomorrow, as she nears discharge readiness. Donna is comfortable with this plan, and is looking forward to returning home. CM will continue to follow. A: Donna is a 31 year old female admitted to [facility] on 09/28/21 for pyelonephritis. P: Anticipate Donna will return home when medically cleared. She will be driven home by family when ready. She will follow up with her PCP and discharge plan of care. CM will continue to follow.
[2021-10-01] MEDS: Acetaminophen 500 MG TAB 1000 MG PO (20:38)
--- NOTE | 2021-10-01 23:23 | NUR.NOTE ---
Pt called me in the room to request that her IV be removed as it was hurting her and had some blood around it. I explained that we could check if it was still accessible first but she stated that I want it out, I know they will have to put another one in tomorrow for my antibiotics. I removed IV, pt now has no IV access. Nursing Note:
--- NOTE | 2021-10-02 03:09 | NUR.NOTE ---
pt requested to not be woken up for 0200 tylenol. She stated that she would call if she needed something for pain. Nursing Note:
[2021-10-02] MEDS: Acetaminophen 500 MG TAB 1000 MG PO (06:35)
[2021-10-02 07:08] LABS: Abs Immature Grans 0.05 10^3/uL (0.0-0.06); Absolute Basophil Count 0.03 10^3/uL (0.0-0.2); Absolute Lymphocyte Count 1.44 10^3/uL (1.2-3.4); Absolute Monocyte Count 0.83 10^3/uL (0.1-0.8); Absolute Neutrophil Count 3.62 10^3/uL (1.2-6.7); Basophils % 0.5; Eosinophils % 6.3; HGB 11.8 g/dL (11.2-15.7); Immature Grans % 0.8; Lymphocytes % 22.6; MCH 30.5 pg (27.0-33.0); MCHC 32.8 % (32.0-36.0); Neutrophils % 56.8; Nucleated RBC 0 %; Platelet Count 299 10^3/uL (130-400); RBC 3.87 10^6/uL (3.93-5.22); RDW 12.2 % (11.7-14.6); RDW-SD 41.8 fL; WBC 6.37 10^3/uL (4.4-10.8)
[2021-10-02 07:30] LABS: Anion Gap 7.3 mmol/L (3-11); BUN 7 mg/dL (7-18); C-Reactive Protein 5.46 mg/dL (0.0-0.3); CO2 27.7 mmol/L (21.0-32.0); CREATININE 0.9 mg/dL (0.55-1.02); Calcium 8.8 mg/dL (8.5-10.1); Chloride 106 mmol/L (98-107); Glucose 89 mg/dL (74-106); Magnesium 1.9 mg/dL (1.8-2.4); Potassium 3.7 mmol/L (3.5-5.1); Sodium 141 mmol/L (136-145)
[2021-10-02 08:00] VITALS: TEMP 36.4
[2021-10-02 09:48] VITALS: BP 114/76; PULSE 63; O2SAT 97
[2021-10-02] MEDS: Calcium Carbonate 1.5 GM TAB 3 GM PO (09:48)
[2021-10-02] MEDS: Docusate Sodium 100 MG CAP PO (09:48)
[2021-10-02] MEDS: Cefpodoxime 200 MG TAB 400 MG PO (09:48)
[2021-10-02] MEDS: Potassium Chloride 20 MEQ TABCR 40 MEQ PO (09:49)
[2021-10-02 10:10] VITALS: BP 114/76; PULSE 68; RESP 20; TEMP 36.2; O2SAT 99
--- NOTE | 2021-10-02 10:20 | W.PM.DS.N ---
Date of service: 10/02/21 Time of Service: 10:20 DS: Diagnosis Discharge Diagnosis (1) Sepsis: Status: Acute (2) Pyelonephritis: Status: Acute (3) E coli bacteremia: Status: Acute (4) Hypokalemia: Status: Resolved (5) Hypocalcemia: Status: Resolved (6) Pancreatic lesion: Status: Acute Discharge Plan Disposition Patient Disposition: HOME Condition: Improving Discharge Details Reason For Visit: Pyelonephritis Admit Date/Time: 09/28/21 22:46 Admit Provider: Pasquale Ott Attending Provider: Pasquale Ott [facility] Hospital Course: Ms Roth is a 31 year old female with PMHx of obesity with BMI of 33.3 kg/m2, who was admitted to [facility] hospitalist service on 09/28/21 and soon after transferred to the ICU due to hypotension (shock) in setting of sepsis due to E. Coli pyelonephritis with bacteremia. She was initiated on empiric ceftriaxone. She was fluid responsive and did not require vasopressors. Her blood and urine cultures both grew pansensitive E. Coli. She was downgraded to medical surgical status on 09/29/21. Her repeat blood cultures on 09/30/21 have remained negative to date. She is stable for discharge home today with 7 more days of antibiotics (having received 5 days in the hospital) - cefpodoxime - as well as with tylenol/ibuprofen for pain control. It is important to note that on her CT of the abdomen/pelvis w/ contrast done on admission there were findings of a 1.5 cm left ovarian cyst (likely follicular) as well as a density in the superior aspect of the pancreatic body, possibly an anatomic variant. The ultrasound did not get a good look at that lesion and an MRI of the pancreas (as outpatient) should still be performed. The patient was made aware of this recommendation. She is instructed to follow up with her PCP in 1-2 weeks. Care for patient as well as completion of her discharge summary took 45 minutes on the day of discharge. Home Meds and New Rx's Prescriptions: New Acetaminophen [Tylenol] 1,000 mg PO Q8H PRN PRNQty: 0 0RF docusate sodium [Colace] 100 mg Capsule 100 mg PO BID PRN PRNQty: 0 0RF ibuprofen 600 mg Tablet 600 mg PO Q8H PRN PRN (Reason: fever or pain) Qty: 30 0RF nicotine 7 mg/24 hr Patch 24 Hour 7 mg transdermal DAILY PRN PRNQty: 30 0RF cefpodoxime 200 mg tablet 400 mg PO Q12H Qty: 28 0RF Rx Instructions: must administer with a meal/food Discharge Instructions Instructions: Cefpodoxime Proxetil (By mouth), How to Stop Smoking (DC), Kidney Infection (DC), Sepsis (DC) Additional Instructions: Finish antibiotics as prescribed. Return to the hospital with any fever, bleeding, chest pain, shortness of breath, or worsening urinary symptoms/flank pain. Follow up with a PCP in 1-2 weeks. Referrals: Rhett Olvera [ NON-[facility] STAFF PHYSICIAN] - 10/15/21 10:30 am (Follow up after hospitilization. You will need to fill out paperwork at this appointment to have a permenent primary care provider (PCP). Then make an appointment to so you can become established.) Activity:: Activity as Tolerated Equipment/Supplies:: No Equipment Needed Diet:: As Tolerated Discharge Orders Discharge Orders: Discharge Order (Routine); Ordered 10/02/21 Ordered By: Marilyn Hawthorne DS: Summary Time Spent with Patient providing and/or coordinating discharge services: Greater than 30 minutes Status at Discharge Functional status at discharge: independent ambulation Overall status at discharge: patient is progressing back to baseline Mental Status: mental status grossly normal Speech and Movement: speech and movement normal Mood: congruent mood Affect: normal affect Exam Narrative Exam Narrative: General: Pleasant female who appears much more comfortable, A&Ox3 HEENT: EOMI, MMM Heart: RRR, no m/r/g Lungs: CTAB Abdomen: soft, nondistended; nontender Extremities: no edema, +1 pedal pulses B Psych Mental Status: mental status grossly normal Speech and Movement: speech and movement normal Mood: congruent mood Affect: normal affect DS: Data Vitals/I&O Vitals and I&O: Vital Signs Temperature 36.2 C L 10/02/21 10:10 Temperature Source Temporal Artery Scan 10/02/21 10:10 Pulse 68 10/02/21 10:10 Pulse Rhythm Regular 10/01/21 23:29 Pulse 97 H 09/30/21 07:34 Respiratory Rate 20 10/02/21 10:10 Respiratory Effort Non-Labored 10/01/21 23:29 Respiratory Depth Normal 10/01/21 23:29 Respiratory Pattern Normal 10/01/21 23:29 Blood Pressure 114/76 10/02/21 10:10 Blood Pressure Mean 79 10/02/21 09:48 Blood Pressure Position Sitting 09/29/21 12:00 Pulse Oximetry 99 10/02/21 10:10 Oxygen Delivery Method Room Air 10/02/21 10:10 Oxygen Flow Rate 0 10/02/21 10:10 Pain Level 4 10/02/21 08:00 Comment 10/01/21 07:24 Intake & Output 10/01/21 10/01/21 10/02/21 11:59 23:59 11:59 Intake Total 2021.667 / 2141.667 120 / 2141.667 240 / 240 Output Total 1900 / 1900 1400 / 1400 Balance 121.667 / 241.667 120 / 241.667 -1160 / -1160 Weight 96.3 kg Intake: IV 1241.667 / 1241.667 Oral 780 / 900 120 / 900 240 / 240 Output: Urine 1900 / 1900 1400 / 1400 Other: Urine Color Yellow Yellow Urine Appearance Clear Clear Urine Odor Normal Normal Voiding Methods Bedside Commode Data Completed and Pending Completed studies during hospitalization [Text1]: CT abdomen/pelvis: 1. There is an area of mild heterogeneous enhancement in the inferior pole the left kidney, probably consistent with pyelonephritis.? There are no obstructing calculi on either side.? No hydronephrosis.? No discernible mass nor formed abscess. 2. There is a 1.5 cm cyst in the left ovary which is most probably follicular.? There is no free fluid. 3. Abnormal finding in the pancreas as described above, either an anatomic variant or isodense mass off the superior aspect of the pancreatic body.? Recommend further imaging with MRI. CXR: No acute pulmonary findings. US abdomen 09/29/21: 1.? The pancreatic finding described on the recent CT scan projects off the superior aspect of the pancreatic body and therefore would be difficult visualize with ultrasound.? For this reason I recommend follow-up MRI of the pancreas with IV contrast. 2.? Possible small polyp in the gallbladder.? No shadowing calculi. 3.? There is no ascites. 4. other findings as above. Labs on day of discharge: Labs from last 24 hours 10/02/21 10/02/21 06:25 06:25 WBC 6.37 RBC 3.87 L Hgb 11.8 Hct 36.0 MCV 93.0 MCH 30.5 MCHC 32.8 RDW 12.2 Plt Count 299 MPV 10.0 Immature Gran % 0.8 Neutrophils % 56.8 Lymphocytes % 22.6 Monocytes % 13.0 Eosinophils % 6.3 Basophils % 0.5 Nucleated RBC % 0 Absolute Neutrophils 3.62 Absolute Lymphocytes 1.44 Absolute Monocytes 0.83 H Absolute Eosinophils 0.40 Absolute Basophils 0.03 Sodium 141 Potassium 3.7 Chloride 106 Carbon Dioxide 27.7 Anion Gap 7.3 BUN 7 Creatinine 0.9 Estimated GFR/1.73 m2 >= 60.00 Glucose 89 Calcium 8.8 Magnesium 1.9 C-Reactive Protein 5.46 H Preliminary micro results at discharge 09/30/21 06:30 Blood Culture - Preliminary Blood NO GROWTH 48 HOURS 09/30/21 06:20 Blood Culture - Preliminary Blood NO GROWTH 48 HOURS 09/28/21 19:20 Blood Culture - Preliminary Blood NO GROWTH 72 HOURS 09/28/21 18:35 Blood Culture - Preliminary Blood Escherichia coli PFSH All Active Problems (Updated 10/02/21 @ 10:50 by Marilyn Hawthorne MD) Pancreatic lesion (Acute) Discharge planning issues (Acute) DVT prophylaxis (Acute) E coli bacteremia (Acute) Sepsis (Acute) Pyelonephritis (Acute) Unwanted fertility (Acute) Chest pain (Acute) Medical History (Updated 10/02/21 @ 10:50 by Marilyn Hawthorne MD) Obesity (BMI 30.0-34.9) Surgical History pupil repair after trauma Family History Mother Alcohol abuse Father Neoplasm COLON Sister Substance abuse Social History Smoking/Tobacco Use Status: Current every day Tobacco Type: cigarettes Smoking risk assessment performed?: Yes Alcohol Intake: never Drug use: Never Substance use type: does not use Do you feel safe at home: Yes Do you feel safe in your relationship?: Yes
--- NOTE | 2021-10-02 10:36 | PDOC.CMDIS ---
- If Service Date Differs Date of service: 10/02/21 Time of Service: 10:36 LACE Index Scoring Tool - Questions: Length of Stay (in days): 4 - 6 Acuity (Admit via E.D.?): Yes E.D. Visits: 2 - Answers: Total Score: 9 Risk of Readmission: Low Risk Care Management Discharge Reason for Hospitalization: Pyelonephritis Discharge Plan: Donna will return home with no new services. CM coordinated a follow up appointment, post hospitalization at [facility] in [facility] with Rhett Olvera on 10/15/21 at 10:30. Her friend will drive her home via private vehicle. She will follow her discharge plan of care. She is happy to be going home. Patient/Family Education Needs: Review discharge instructions and limitations, discussion of self care needs including ask me three.
== END 2021-10-02 10:50 | disposition home or self-care (01) | DRG 872 ==
LOC: ER 22:52 → ICU 09-29 10:08
PROVIDERS: Internal Medicine; Admitting Provider General Practice; Emergency Provider Physician Assistant; Visit Provider General Practice
DX: A41.51 Sepsis due to Escherichia coli [E. coli] (principal); N10 Acute pyelonephritis; E87.6 Hypokalemia; E83.51 Hypocalcemia; D64.9 Anemia, unspecified; B96.20 Unspecified Escherichia coli [E. coli] as the cause of diseases classified elsewhere; F17.210 Nicotine dependence, cigarettes, uncomplicated; R93.2 Abnormal findings on diagnostic imaging of liver and biliary tract
CPT/HCPCS: 36415; 76770; 80048; 80053; 83690; 84145; 85027; 86850; 86900; 86901; 87040; 87077; 87635; 71046; 74177; 76700; 80320; 81003; 81015; 82040; 82310; 82330; 83605; 83735; 84703; 85025; 86140; 87086; 87186; 99222; 99232; 99239; 99291; J0131; J0696; J1885; J2270; J2405; J3490

== ENCOUNTER 2021-10-15 16:21 | Outpatient (REF) | payer MEDICAID, SELFPAY ==
[2021-10-15 18:58] LABS: Bilirubin Negative (Negative); Blood Negative (Negative); Clarity Clear (Clear); Glucose Negative (Negative); Ketones Negative (Negative); Leukocyte Esterase Trace (Negative); Nitrite Negative (Negative); Urobilinogen 0.2 EU/dL (Up TO 0.2); pH 6.5 (5-8)
[2021-10-15 19:09] LABS: Bacteria Few HPF (Negative); C & S Indicated? No/Sq. Contamination; Casts Negative LPF (Negative); Crystals Negative HPF (Negative); Epithelial Cells Many HPF (Negative); Mucus Negative (Negative); RBC 0-2 HPF (0-2)
== END 2021-10-15 16:22 | disposition home or self-care (01) ==
LOC: NCHCN 16:21
PROVIDERS: Visit Provider Physician Assistant
DX: N12 Tubulo-interstitial nephritis, not specified as acute or chronic (principal); R82.998 Other abnormal findings in urine
CPT/HCPCS: 81003; 81015

== ENCOUNTER 2021-10-27 02:31 | Outpatient (CLI) | payer MEDICAID, SELFPAY ==
[2021-10-27 13:18] LABS: Source Nasal/Nares
[2021-10-27 17:27] LABS: COVID-19 PCR Negative (Negative)
== END 2021-10-27 02:32 | disposition home or self-care (01) ==
LOC: LBO 02:31
PROVIDERS: Visit Provider Obstetrics & Gynecology
DX: Z20.822 Contact with and (suspected) exposure to COVID-19 (principal); Z01.818 Encounter for other preprocedural examination; Z30.2 Encounter for sterilization; Z01.812 Encounter for preprocedural laboratory examination
CPT/HCPCS: 36415; 86850; 86900; 86901; 87635; 85025

== ENCOUNTER 2021-10-27 02:41 | Outpatient (CLI) | payer MEDICAID, SELFPAY ==
[2021-10-27 09:15] LABS: Abs Immature Grans 0.02 10^3/uL (0.0-0.06); Absolute Basophil Count 0.05 10^3/uL (0.0-0.2); Absolute Eosinophil Count 0.23 10^3/uL (0.0-0.7); Absolute Lymphocyte Count 1.98 10^3/uL (1.2-3.4); Absolute Monocyte Count 0.72 10^3/uL (0.1-0.8); Basophils % 0.6; Eosinophils % 2.6; HCT 40.1 % (36.0-46.0); Immature Grans % 0.2; MCH 30.5 pg (27.0-33.0); MCHC 32.4 % (32.0-36.0); MCV 94.1 fL (80-95); MPV 9.8 fL (8.0-11.0); Neutrophils % 66.6; Platelet Count 248 10^3/uL (130-400); RBC 4.26 10^6/uL (3.93-5.22); RDW 13.2 % (11.7-14.6); RDW-SD 45.8 fL
== END 2021-10-27 02:42 | disposition home or self-care (01) ==
LOC: LBO 02:41
PROVIDERS: Visit Provider Obstetrics & Gynecology
DX: Z30.2 Encounter for sterilization (principal); Z01.818 Encounter for other preprocedural examination; Z01.812 Encounter for preprocedural laboratory examination
CPT/HCPCS: 36415; 86850; 86900; 86901; 85025

== ENCOUNTER 2021-10-29 06:07 | Day surgery (SDC) | payer MEDICAID, SELFPAY ==
[2021-10-29] VITALS (7 sets, daily range): BP systolic 107–118; BP diastolic 66–84; PULSE 56–90; RESP 12–18; TEMP 36.2–36.7; O2SAT 95–100; BMI 33.1
[2021-10-29 06:36] LABS: Abs Immature Grans 0.03 10^3/uL (0.0-0.06); Absolute Basophil Count 0.04 10^3/uL (0.0-0.2); Absolute Eosinophil Count 0.33 10^3/uL (0.0-0.7); Absolute Lymphocyte Count 2.24 10^3/uL (1.2-3.4); Absolute Neutrophil Count 4.97 10^3/uL (1.2-6.7); Basophils % 0.5; HCT 38.9 % (36.0-46.0); HGB 12.7 g/dL (11.2-15.7); Immature Grans % 0.4; Lymphocytes % 27.3; MCH 30.3 pg (27.0-33.0); MCHC 32.6 % (32.0-36.0); MCV 92.8 fL (80-95); MPV 9.7 fL (8.0-11.0); Monocytes % 7.3; Neutrophils % 60.5; Platelet Count 245 10^3/uL (130-400); RBC 4.19 10^6/uL (3.93-5.22); RDW 13.1 % (11.7-14.6); RDW-SD 44.4 fL; WBC 8.21 10^3/uL (4.4-10.8)
--- NOTE | 2021-10-29 06:43 | W.ANESPRE ---
General Info Date of Service Date Performed: 10/29/21 Height: 5 ft 7 in Weight: 96.1 kg Body Mass Index (BMI): 33.1 Surgical Procedure: Operation Date: 10/29/21 07:40 Proposed Procedure Side Surgeon p Salpingectomy Laparoscopic Bilateral Abi Chatterjee DO [employer] Allergies and Home Medications Allergies Allergy/AdvReac Type Severity Reaction Status Date / Time No Known Allergies Allergy Verified 10/29/21 06:19 Home Medication Medication Instructions Recorded Acetaminophen [Tylenol] 1,000 mg PO Q8H PRN PRN #0 10/02/21 docusate sodium 100 mg capsule 100 mg PO BID PRN PRN #0 cap 10/02/21 (Colace) ibuprofen 600 mg tablet 600 mg PO Q8H PRN PRN #30 tab 10/02/21 Current Visit Medications: Current Medications Generic Name Dose Route Start Last Admin Trade Name Freq PRN Reason Stop Dose Admin Ringer's Solution 1,000 mls @ 125 mls/hr 10/29/21 06:00 IV 11/27/21 23:59 INFUSION ASYA IV Miscellaneous Supplies 1 each 10/29/21 06:00 Iv Access IV 11/27/21 23:59 DIRECTED ASYA Sodium Chloride 0 ml 10/29/21 06:00 Normal Saline Flush 10 Ml Syr IV 11/27/21 23:59 PRN PRN Sodium Chloride 0 ml 10/29/21 06:00 Normal Saline 10 Ml Vial IJ 11/27/21 23:59 DIRECTED PRN Sterile Water 0 ml 10/29/21 06:00 Water,Injection,Sterile 10 Ml Vial IJ 11/27/21 23:59 DIRECTED PRN PFSH Active Problems Active Problems: Problem Status Onset Code Chest pain R07.9 Unwanted fertility Z30.09 Pyelonephritis N12 Pancreatic lesion K86.9 Medical History Medical History (Updated 10/27/21 @ 13:01 by Kalin Fraga) COVID-19 07/23/21-symptomatic Obesity (BMI 30.0-34.9) Surgical History Surgical History pupil repair after trauma Tobacco Smoking/Tobacco Use Status: Current every day Tobacco Type: cigarettes Smoking cigarettes per day: 5 Alcohol Alcohol Intake: current Alcohol intake frequency: a few times a week Alcohol type: beer Substance Use Substance use: Never Substance use type: does not use Vital Signs and Lab Results Vital Signs Most Recent Vital Signs in EMR: Most Recent Vital Signs Temp Pulse Resp BP Pulse Ox 36.7 C 83 17 107/84 98 10/29/21 06:10 10/29/21 06:10 10/29/21 06:10 10/29/21 06:10 10/29/21 06:10 Point of Care Results Point of Care Results: POC- Test(urine) Negative 10/29/21 06:41 Lab Results Result Diagrams: 10/29/21 06:20 Blood Type / Crossmatch: Patient ABO/Rh O Negative 10/27/21 Antibody Screen NEGATIVE 10/27/21 Complete Blood Count: White Blood Count 8.21 10^3/uL (4.4-10.8) 10/29/21 06:20 10/29/21 Red Blood Count 4.19 10^6/uL (3.93-5.22) 10/29/21 06:20 10/29/21 Hemoglobin 12.7 g/dL (11.2-15.7) 10/29/21 06:20 10/29/21 Hematocrit 38.9 % (36.0-46.0) 10/29/21 06:20 10/29/21 Platelet Count 245 10^3/uL (130-400) 10/29/21 06:20 10/29/21 Complete Metabolic Panel: Sodium Level 141 mmol/L (136-145) 10/02/21 06:25 10/02/21 Potassium Level 3.7 mmol/L (3.5-5.1) 10/02/21 06:25 10/02/21 Chloride Level 106 mmol/L (98-107) 10/02/21 06:25 10/02/21 Carbon Dioxide Level 27.7 mmol/L (21.0-32.0) 10/02/21 06:25 10/02/21 Blood Urea Nitrogen 7 mg/dL (7-18) 10/02/21 06:25 10/02/21 Creatinine 0.9 mg/dL (0.55-1.02) 10/02/21 06:25 10/02/21 Estimated GFR/1.73 m2 >= 60.00 (mL/min/1.73m2) 10/02/21 06:25 10/02/21 Magnesium Level 1.9 mg/dL (1.8-2.4) 10/02/21 06:25 10/02/21 Calcium Level 8.8 mg/dL (8.5-10.1) 10/02/21 06:25 10/02/21 Ionized Calcium 1.04 mmol/L (1.12-1.32) L 09/29/21 09:40 09/29/21 Albumin 2.9 g/dL (3.4-5.0) L 09/30/21 06:20 09/30/21 Glucose Level 89 mg/dL (74-106) 10/02/21 06:25 10/02/21 C-Reactive Protein 5.46 mg/dL (0.0-0.3) H 10/02/21 06:25 10/02/21 Liver Function Panel: No Data to Display Coagulation Panel: No Data to Display Cardiac Panel: No Data to Display Arterial Blood Gas: No Data to Display Venous Blood Gas: No Data to Display Pancreas Panel: No Data to Display Thyroid Panel: No Data to Display Infectious Disease: Coronavirus (COVID-19)(PCR) Negative (Negative) 10/27/21 13:10 10/27/21 Coronavirus 2019 Source Nasal/Nares 10/27/21 13:10 10/27/21 Blood Cultures: No Data to Display Toxicology Panel: No Data to Display Panel: No Data to Display Anesthesia Assessment and Plan Anesthesia History Personal History: No History of Anesthesia Complications Family History: No Family History of Anesthesia Complications Exercise Tolerance Exercise Tolerance: Metabolic Equivalents>4 Pertinent Negatives Pertinent Negatives: No Symptoms of GERD, No Major Cardiovascular Symptoms or Complaints, No Major Pulmonary Symptoms or Complaints and No History of CVA/TIA Cardiac & Pulmonary Exam Cardiac Exam: Normal S1/S2 Heart Sounds Pulmonary Exam: Clear Bilateral Breath Sounds Implantable Cardiac Device Does patient have a Pacemaker or an ICD?: No Airway Exam Known Difficult Airway: No Mallampati Class: 2 Mouth Opening: Normal (> 3cm) Thyromental Distance: Greater than 3 cm Neck Range of Motion: Full ROM Neck Circumference: Normal Teeth Condition: Normal Dentition ASA Classification ASA Score: ASA 2 Emergency Case?: No NPO Status NPO Status: NPO Clears >2 hours, Solids >8 hours Status Status: Negative HCG Anesthesia Plan Resuscitation Status: Full Code Anesthesia Technique: General Anesthesia Airway Planned: Endotracheal Tube Monitors Used: Standard Monitors
[2021-10-29] MEDS: Lactated Ringers 1,000 ML 125 ML IV (06:58)
--- NOTE | 2021-10-29 07:23 | W.PM.HP.N ---
Date of service: 10/29/21 Time of Service: 07:23 History of Present Illness Narrative: Patient seen in the office today with undesired fertility.? She previously been scheduled for a tubal ligation in June, however she developed Covid.? Her symptoms at that time were mild with only loss of taste, particularly for beer.? She has been vaccinated, but not boosted.? We discussed long-acting reversible contraceptive therapies, oral contraceptives, barrier methods, and tubal ligation with bilateral salpingectomy.? Full informed consent was obtained for laparoscopic bilateral salpingectomy.? She does understand the risks, and the potential failures.? In the interval time, she will be started on oral contraceptive pills.? She is on her menses today with a negative test and she can begin pills at this point. She recently had an issue with pyelonephritis and was hospitalized. Currently she feels well with no complaints. Review of Systems Narrative: Well with no complaints Constitutional Constitutional: Reports as per HPI and Reports system reviewed and no additional complaints, except as documented Eyes Eyes: Reports system reviewed and no additional complaints, except as documented Cardiovascular Cardiovascular: Reports as per HPI, Reports system reviewed and no additional complaints, except as documented and Denies chest pain Respiratory Respiratory: Reports system reviewed and no additional complaints, except as documented, Denies chest congestion and Denies cough Gastrointestinal Gastrointestinal: Reports system reviewed and no additional complaints, except as documented and Denies abdominal pain Genitourinary Genitourinary: Reports system reviewed and no additional complaints, except as documented, Denies abnormal menses and Denies abnormal vaginal bleeding Musculoskeletal Musculoskeletal: Reports system reviewed and no additional complaints, except as documented PFSH All Active Problems Chest pain (Acute) Unwanted fertility (Acute) Pyelonephritis (Acute) Pancreatic lesion (Acute) Medical History COVID-19 07/23/21-symptomatic Obesity (BMI 30.0-34.9) Surgical History pupil repair after trauma Family History Mother Alcohol abuse Father Neoplasm COLON Sister Substance abuse Social History Smoking/Tobacco Use Status: Current every day Tobacco Type: cigarettes Tobacco: How many years used: 14 Smoking risk assessment performed?: Yes Alcohol Intake: current Alcohol Intake frequency: a few times a week Alcohol type: beer Drug use: Never Substance use type: does not use Do you feel safe at home: Yes Do you feel safe in your relationship?: Yes Female Reproductive History Menstrual Age of Menarche: 14 Duration of menses: 3-5 days History History 4 Para 4 Hx # Term Pregnancies Multiple births Hx # Pregnancies Ectopic pregnancies AB induced Hx Number of Living Children AB spontaneous Meds Allergies and Home Medications Allergies Allergy/AdvReac Type Severity Reaction Status Date / Time No Known Allergies Allergy Verified 10/29/21 06:19 Home Medications Medication Instructions Recorded Confirmed Type Acetaminophen [Tylenol] 1,000 mg PO Q8H PRN PRN #0 10/02/21 10/29/21 Rx docusate sodium 100 mg capsule 100 mg PO BID PRN PRN #0 cap 10/02/21 10/29/21 Rx (Colace) ibuprofen 600 mg tablet 600 mg PO Q8H PRN PRN #30 tab 10/02/21 10/29/21 Rx Exam Narrative Exam Narrative: 119/73, 106, 39.6, 30, 100 % RA. HEENT atraumatic; neck supple; lungs clear; heart tachy/regular; abdomen soft, mild LLQ tenderness w/o rebound; mild left CVAT; extremities w/o edema; neuro Ox3, lucid, appears tired, moves all 4s Const General: cooperative, healthy appearing, comfortable and no acute distress [facility] Head: normal to inspection Eyes General: appearance normal, both eyes and all related structures Neck Neck: normal visual inspection, full ROM and no lymphadenopathy Resp Effort & Inspection: normal respiratory effort, no audible wheezes and no cough Auscultation: clear to auscultation bilaterally, no rales, no rhonchi and no wheezes Cardio Palpation: normal PMI Rate: regular rate Rhythm: regular rhythm Heart Sounds: S1 normal, S2 normal and no murmurs GI Palpation: soft, not firm and no guarding Skin General skin exam: no rashes or lesions noted Extrem General: normal to inspection, no clubbing, cyanosis or edema and no pedal edema Results Labs Result diagrams: 10/29/21 06:20 Labs: Laboratory Results - last 24 hr 10/29/21 10/29/21 06:20 06:20 WBC 8.21 RBC 4.19 Hgb 12.7 Hct 38.9 MCV 92.8 MCH 30.3 MCHC 32.6 RDW 13.1 Plt Count 245 MPV 9.7 Immature Gran % 0.4 Neutrophils % 60.5 Lymphocytes % 27.3 Monocytes % 7.3 Eosinophils % 4.0 Basophils % 0.5 Nucleated RBC % 0.0 Absolute Neutrophils 4.97 Absolute Lymphocytes 2.24 Absolute Monocytes 0.60 Absolute Eosinophils 0.33 Absolute Basophils 0.04 Patient ABO/Rh O Negative Antibody Screen NEGATIVE Last Vital Signs Temp 98.1 F 10/29/21 06:10 Pulse 83 10/29/21 06:10 Resp 17 10/29/21 06:10 BP 107/84 10/29/21 06:10 Pulse Ox 98 10/29/21 06:10
--- NOTE | 2021-10-29 08:11 | FALL_PTH ---
PATIENT: Donna Roth LOC: [facility] U#:[id number] AGE/SX: 31/F ROOM: RE10/29/[address]: Abi Chatterjee DO : 1990 BED: DIS: 10/29/2021 SPEC #: [id number] RECD: 10/29/21 12:26 STATUS: HEENA REQ #: [id number] YESSENIA: 10/29/21 08:[address]: Abi Chatterjee DEPT: Surgical Specimen RECD BY: Emily Mix ENTERED: 10/29/21 12:27 SP TYPE: Fall OTHR DR: None Tissues: 1 - FALLOPIAN TUBE (STERILIZATION) 2 - FALLOPIAN TUBE (STERILIZATION) Procedures: GROSS AND MICRO LEVEL 2 Comments: [id number]
--- NOTE | 2021-10-29 08:23 | ROE_ITS ---
Date of service: 10/29/21 Time of Service: 08:23 Operative Note Operative Note DATE OF PROCEDURE: 10/29/21 PRE-OP DIAGNOSIS: Undesired fertility POST-OP DIAGNOSIS: same PROCEDURE: Laparoscopic bilateral salpingectomy SURGEON: Abi Chatterjee DOCK BUILDER: Jocelyn Balderrama ANESTHESIA TYPE: General LMA/ETT Refer to Anesthesia Record ESTIMATED BLOOD LOSS: 5 PATHOLOGY: other (1. Right fallopian tube 2. Left fallopian tube) COMPLICATIONS: None Patient was transported to: PACU Patient's condition: stable Indications: Unwanted fertility Findings: Normal-appearing tubes, ovaries, uterus. No intra-abdominal or pelvic pathology noted. Smooth regular liver edge. Procedure Description: After full informed consent was obtained, patient was taken the operating suite with an IV running. She was placed in the supine position and anesthesia administered via endotracheal intubation for general anesthesia with ease. She was then placed in the modified dorsolithotomy position in [facility] stirrups and prepped and draped in the usual sterile fashion. Exam under anesthesia revealed a uterus that was midline and mobile. Speculum was inserted into the vaginal vault and a single-tooth tenaculum used to grasp the anterior lip of the cervix. Cervical os dilated to the point that a ZUMI uterine manipulator could be placed within. Single-tooth tenaculum and speculum were both removed. Attention was then turned to the abdomen. The infraumbilical area was infiltrated with quarter percent Marcaine. A vertical incision was made at the umbilicus and the anterior abdominal wall elevated. A varies needle was used to create a pneumoperitoneum with CO2 gas for a maximum pressure of 15 mmHg. At this point a bladeless Optiview 12 mm sleeve and trocar were placed under direct visualization into the abdomen. There was no evidence of traumatic insertion. A second and third right and left lower quadrant trocar sites were placed under direct visualization after infiltration with quarter percent Marcaine. The uterus was then elevated. Both fallopian tubes were identified and found to be normal. Both ovaries were normal. Right ureter was identified and well distant from the surgical field as well as the left ureter. The right fallopian tube was elevated and cautery transected with a LigaSure device. This tube was then removed through the 10 mm port. Similar procedure was carried out on the left fallopian tube and removed from 10 mm port. Inspection of the abdomen was then undertaken. All pedicles were hemostatic. At this point the procedure was terminated. Pneumoperitoneum was released and all ports were removed. The fascial incision was closed using 0 Vicryl suture in a [id number] fashion. Skin edge was reapproximated with 4-0 Monocryl and Steri-Strips and sterile dressings were placed. EBL: 5 mL Fluids: 600 cc of crystalloid per anesthesia Complications: None apparent Pathology: 1. Right fallopian tube 2. Left fallopian tube.
[2021-10-29] MEDS: Bupivacaine 0.25% Pres-Free 30 ML VIAL (08:24)
[2021-10-29] MEDS: ACETAMINOPHEN 1,000 MG/100 ML BTL 400 MG IVPB (08:46)
--- NOTE | 2021-10-29 11:05 | W.ANESPOSTOP ---
Postoperative Evaluation Date, Time and Location Date Performed: 10/29/21 Time Performed: 10:25 Patient Location: Day Surgery Unit Vital Signs Most Recent Imported Vital Signs: Most Recent Vital Signs Temp Pulse Resp BP Pulse Ox 36.3 C L 61 16 111/76 100 10/29/21 09:47 10/29/21 09:47 10/29/21 09:47 10/29/21 09:47 10/29/21 09:47 Pain Score Most Recent Pain Score: Most Recent Pain Score Pain Level 8 10/29/21 09:47 Assessment Mental Status: Awake (Alert & Oriented to Patient Baseline) Airway and Respiratory Function: Patent airway with normal (patient baseline) respiratory exam Cardiovascular Function: Hemodynamically Stable Hydration Status: Adequately Hydrated Nausea & Vomiting: No Nausea or Vomiting Pain: Pain is tolerable per patient (Refusing additional medication) Peripheral Nerve Block: Patient did not receive a nerve block
== END 2021-10-29 10:32 | disposition home or self-care (01) ==
PROVIDERS: Visit Provider Obstetrics & Gynecology
PROC: (CPT 58661; principal; 2021-10-29 07:30)
DX: Z30.2 Encounter for sterilization (principal); E66.9 Obesity, unspecified; Z68.33 Body mass index [BMI] 33.0-33.9, adult; F17.210 Nicotine dependence, cigarettes, uncomplicated
CPT/HCPCS: 58661; 36415; 81025; 86850; 86900; 86901; 85025; 88302; J0131; J1100; J1885; J2001; J2250; J2405

== ENCOUNTER 2021-12-09 12:08 | Emergency (ER) | payer MEDICAID, SELFPAY ==
[2021-12-09 12:09] VITALS: BP 120/72; PULSE 65; RESP 16; TEMP 36.8; O2SAT 100
[2021-12-09 12:53] LABS: Abs Immature Grans 0.02 10^3/uL (0.0-0.06); Absolute Basophil Count 0.04 10^3/uL (0.0-0.2); Absolute Eosinophil Count 0.27 10^3/uL (0.0-0.7); Absolute Lymphocyte Count 1.96 10^3/uL (1.2-3.4); Absolute Monocyte Count 0.74 10^3/uL (0.1-0.8); Absolute Neutrophil Count 4.97 10^3/uL (1.2-6.7); Basophils % 0.5; Eosinophils % 3.4; HCT 40.9 % (36.0-46.0); HGB 13.6 g/dL (11.2-15.7); Immature Grans % 0.3; Lymphocytes % 24.5; MCH 30.5 pg (27.0-33.0); MCHC 33.3 % (32.0-36.0); MCV 92 fL (80-95); MPV 10.3 fL (8.0-11.0); Monocytes % 9.3; Platelet Count 251 10^3/uL (130-400); RBC 4.46 10^6/uL (3.93-5.22); RDW-SD 43.8 fL
[2021-12-09 13:05] LABS: ALT 29 U/L (14-59); AST 16 U/L (15-37); Albumin 3.7 g/dL (3.4-5.0); Alkaline Phosphatase 54 U/L (46-116); Anion Gap 9.1 mmol/L (3-11); BUN 8 mg/dL (7-18); Bilirubin, Total 0.6 mg/dL (0.2-1.0); CO2 25.9 mmol/L (21.0-32.0); CREATININE 0.8 mg/dL (0.55-1.02); Calcium 8.7 mg/dL (8.5-10.1); Chloride 106 mmol/L (98-107); Glucose 98 mg/dL (74-106); Lipase 79 U/L (73-393); Magnesium 1.7 mg/dL (1.8-2.4); Potassium 3.6 mmol/L (3.5-5.1); Sodium 141 mmol/L (136-145); Total Protein 6.5 g/dL (6.4-8.2)
[2021-12-09 13:28] LABS: Bilirubin Negative (Negative); Blood Negative (Negative); Clarity Clear (Clear); Glucose Negative (Negative); Ketones 15 mg/dL (Negative); Leukocyte Esterase Negative (Negative); Nitrite Negative (Negative); Urobilinogen 0.2 EU/dL (Up TO 0.2)
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
[2021-12-09] MEDS: Normal Saline 1,000 ML 1000 ML IV (13:49)
[2021-12-09] MEDS: Ondansetron 4 MG/2 ML VIAL IVP (13:49)
[2021-12-09] MEDS: Normal Saline Flush 10 ML SYR IVP (13:50)
[2021-12-09 14:24] VITALS: BP 107/61; PULSE 69; RESP 17; TEMP 36.7; O2SAT 100
== END 2021-12-09 14:32 | disposition home or self-care (01) ==
PROVIDERS: Emergency Provider Registered Nurse Emergency; PCP Physician Assistant
DX: R10.10 Upper abdominal pain, unspecified (principal)
CPT/HCPCS: 36415; 80053; 81025; 83690; 96361; 96365; 96375; 99284; 81003; 83735; 85025; 99283; J0131; J2405

== ENCOUNTER → 2021-12-11 18:43 | Outpatient (CLI) | payer MEDICAID, SELFPAY ==
--- NOTE | 2021-12-11 14:15 | DI.MRI_ITS ---
Exam(s) MR ABDOMEN WO/W EXAM: MR ABDOMEN WO/W CLINICAL HISTORY: F/U ABNL CT, PANCREATIC LESION,K86.9 TECHNIQUE: Multiplanar multisequence MRI was performed with both pre and post contrast infused seque nces. Contrast injected sequences were performed following IV injection of 20 cc of Dotarem. COMPARISON: CT CT ABDOMEN PELVIS W from 09/28/2021 FINDINGS: VISUALIZED LUNG BASES: No pleural effusions evident. There is no ascites evident. LIVER: There are no focal hepatic lesions nor dilatation of intrahepatic ducts. No steatosis evident . BILIARY: There is no obvious gallbladder pathology. The CBD is not dilated. PANCREAS: There is no evidence of pancreatic mass nor dilatation of the pancreatic duct.The finding o ff the superior aspect pancreas at the junction of the body and tail region is isointense to pancreat ic parenchyma on all sequences and is most probably just anatomic variant as opposed to significant p athology. The pancreatic duct is not dilated. There is no peripancreatic fluid. SPLEEN: Spleen is not enlarged and there are no intrasplenic lesions.Splenic and portal veins are pat ent ADRENALS: There are no significant adrenal masses. KIDNEYS: No solid renal masses. No hydronephrosis.No cysts evident. ABDOMINAL AORTA: Not enlarged and there is no significant para-aortic adenopathy. ANTERIOR ABDOMINAL WALL/GI: There is no evidence of significant anterior abdominal wall hernia in the field of view of this study.Is no evidence of obvious bowel obstruction. OSSEOUS: There are no lytic osseous lesions in the field of view of this study. IMPRESSION: 1. No evidence of significant pancreatic mass. Finding described on the recent CT scan off the super ior aspect of the pancreatic body is isointense to adjacent pancreatic tissue on all sequences and do es not exhibit abnormal contrast-enhancement and is therefore most probably just anatomic variant, as opposed to significant pathology. 2. No abnormal renal findings. The area of abnormal enhancement in the inferior aspect left kidney s een on the prior CT scan appears to enhance normal fashion on the present study. DATA REPOSITORY:
[2021-12-11] MEDS: Gadoterate meglumine 20 ML VIAL IVP (14:58)
== END ==
PROVIDERS: PCP Physician Assistant; Visit Provider Physician Assistant
DX: K86.89 Other specified diseases of pancreas (principal)
CPT/HCPCS: 74183

== ENCOUNTER 2021-12-21 11:03 | Emergency (ER) | payer MEDICAID, SELFPAY ==
[2021-12-21 11:09] VITALS: BP 130/87; PULSE 83; RESP 16; TEMP 37; O2SAT 100
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
[2021-12-21] MEDS: Ketorolac 30 MG/ML VIAL IM (11:35)
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
[2021-12-21 13:20] VITALS: BP 128/80; PULSE 62; RESP 18; TEMP 37; O2SAT 96
== END 2021-12-21 12:37 | disposition home or self-care (01) ==
PROVIDERS: Emergency Provider Nurse Practitioner Family; PCP Physician Assistant
DX: S50.812A Abrasion of left forearm, initial encounter (principal); S90.31XA Contusion of right foot, initial encounter; S90.01XA Contusion of right ankle, initial encounter
CPT/HCPCS: 29515; 96374; 99284; 73090; 73610; 73630; J1885

== ENCOUNTER → 2021-12-23 01:30 | Outpatient (CLI) | payer MEDICAID, SELFPAY ==
--- NOTE | 2021-12-23 | DI.US_ITS ---
Exam(s) US BREAST LT COMPLETE US BREAST RT COMPLETE EXAM: US BREAST LT COMPLETE CLINICAL HISTORY: right breast lump,APIN,N63.10,N64.4. TECHNIQUE: Complete ultrasound of the breast was performed including all 4 quadrants, the retroareo lar region, and the ipsilateral axilla. COMPARISON: Prior mammograms were reviewed. FINDINGS: See combined report for DIAGNOSTIC BILATERAL MAMMOGRAM AND COMPLETE BILATERAL BREAST ULTRASOUND. IMPRESSION: Appropriate follow-up is PER DESCRIBED ON THE COMBINED REPORT. BI-RADS Category 3 - 6 month - Probably Benign Finding: Recommend follow-up mammography in 6 months Breast Density - Category B - Scattered areas of fibroglandular density Breast density Category C or D implies that the patient has dense breast tissue. Dense breast tissue can make it harder to find cancer on a mammogram. Dense breast tissue is also associated with an incr eased risk of breast cancer. This information about the result of the mammogram report was provided to the patient to raise their awareness. Use this report when you speak with the patient about their risks for breast cancer, which includes their family history. At that time, you may recommend additional screening tests (Ultrasoun d or MRI) as these tests may add significant information. A negative radiographic report should not delay biopsy if a dominant or clinically suspicious mass is present. Up to ten percent of cancers are not identified on mammography. A negative report may reinforce clinical impression. Adenosis and dense breasts may obscure an underlying neoplasm. False positive reports average 6 to 10%. Patient will receive a letter notifying them of these results.
--- NOTE | 2021-12-23 07:45 | DI.MAMMO_ITS ---
Exam(s) MAMMO DIAGNOSTIC BI EXAM: MAMMO DIAGNOSTIC BI AND BILATERAL COMPLETE BREAST ULTRASOUND CLINICAL HISTORY: R- tender lumps getting bigger, LT nipple discharGE,N64.4,N63.10. TECHNIQUE: BILATERAL mammographic images were obtained with 3D tomosynthesis technique and utilizing computer aided detection (CAD). BILATERAL COMPLETE BREAST ULTRASOUND was also performed, including all 4 quadrants of both breasts, t he retroareolar region of both breasts and both axillary regions. COMPARISON: Prior outside mammograms were reviewed, the most recent being . This 31-year-old patient apparently feels lumps in the upper outer quadrant of the right breast and p ain in the left breast with occasional left breast nipple discharge. FINDINGS: BILATERAL DIAGNOSTIC Mammogram: There are no significant radiograph findings in the right breast. In the left breast there are nodular densities in the upper outer quadrant which are present on prior mammograms 2019 in 2020. However, more anteriorly there is an additional nodule previously present. Visual spot-compression view does not dissipate this nodule. There are no malignant-appearing micr ocalcification groups in this region or elsewhere in either breast and there is no new architectural distortion or skin thickening-traction. BILATERAL COMPLETE BREAST ULTRASOUND: There are no focal ultrasound findings in all 4 quadrants of the right breast. Retroareolar region o f the right breast unremarkable as is the right axilla. Left breast ultrasound reveals finding at 12 o'clock position which has the appearance of a cyst rick uring 9 x 3 millimeters and corresponding to the finding on the mammogram. No other nodular densitie s seen, further evidence that the other unchanged nodules for the upper outer quadrant are benign int ramammary lymph nodes. Scanning of the left axilla is negative for significant adenopathy. IMPRESSION: 1. No radiographic evidence of malignancy nor ultrasound abnormality in the right breast. No finding s on imaging to correspond to what she feels are palpable lumps. New left breast nodule 12 o'clock position which appears to be a 9 x 3 millimeter microcyst on ultras ound examination. Appropriate follow-up, as discussed by myself with the patient today, is repeat breast imaging in 3 m onths if she feels that her lumps persist in the right breast, earlier if she feels that they are inc reasing in size. . The patient was informed of the findings and follow-up recommendations prior to leaving the [facility] t today. BI-RADS Category 3 - 3 month - Probably Benign Finding: Recommend follow-up mammography in 3 months Breast Density - Category B - Scattered areas of fibroglandular density Breast density Category C or D implies that the patient has dense breast tissue. Dense breast tissue can make it harder to find cancer on a mammogram. Dense breast tissue is also associated with an incr eased risk of breast cancer. This information about the result of the mammogram report was provided to the patient to raise their awareness. Use this report when you speak with the patient about their risks for breast cancer, which includes their family history. At that time, you may recommend additional screening tests (Ultrasoun d or MRI) as these tests may add significant information. A negative radiographic report should not delay biopsy if a dominant or clinically suspicious mass is present. Up to ten percent of cancers are not identified on mammography. A negative report may reinforce clinical impression. Adenosis and dense breasts may obscure an underlying neoplasm. False positive reports average 6 to 10%. Patient will receive a letter notifying them of these results.
== END ==
PROVIDERS: PCP Physician Assistant; Visit Provider Nurse Practitioner Family
DX: R92.8 Other abnormal and inconclusive findings on diagnostic imaging of breast; N63.25 Unspecified lump in the left breast, overlapping quadrants; N63.10 Unspecified lump in the right breast, unspecified quadrant
CPT/HCPCS: 76642; 77062; 77066; G0279

== ENCOUNTER 2022-03-25 00:46 | Outpatient (CLI) | payer MEDICAID, SELFPAY ==
--- NOTE | 2022-03-25 07:00 | DI.US_ITS ---
Exam(s) US BREAST LT COMPLETE US BREAST RT COMPLETE MG MAMMO DIAGNOSTIC BI EXAM: MG MAMMO DIAGNOSTIC BI AND COMPLETE BILATERAL REST ULTRASOUND CLINICAL HISTORY: 3 month f/u,painful lumphy rt breast,n54.4,n63.10,r92.8. TECHNIQUE: Bilateral CC and MLO mammographic images were obtained with 3D tomosynthesis technique an d utilizing computer aided detection (CAD). Complete bilat breast ultrasound was performed, including all 4 quadrants of both breasts as well as both retroareolar regions. Also both axillary regions. COMPARISON: Prior mammograms were reviewed, the most recent being 12/23/2021. This 32-year-old patient is complaining of constant bilateral breast pain, unrelated to her menstrual cycle. She also claims that she has ongoing intermittent bilateral nipple discharge. On the left s kirti she claims that this is occasionally bloody. FINDINGS: BILATERAL DIAGNOSTIC MAMMOGRAM: There has been no significant change in the appearance and distribution of the fibroglandular tissue. No new spiculated masses nor malignant-appearing microcalcification groups in either breast benign- appearing lymph nodes in the left axillary tail are again noted. No new architectural distortion or skin thickening-traction. BILATERAL COMPLETE BREAST ULTRASOUND: There are no focal findings in the right breast. No focal findings in all 4 quadrants nor in the ret roareolar region. Scanning of the right axilla is negative. Left breast ultrasound reveals a solitary 7 x 3 millimeter benign cyst at 12 o'clock position approxi mately 2 cm from the nipple. No other focal findings in all 4 quadrants. No dilated retroareolar re gion ducts. No obvious papilloma. Scanning of the left axilla is negative for adenopathy. IMPRESSION: 1. No mammographic evidence of malignancy. 2. Negative complete right breast ultrasound. 3. Single benign microcyst at 12 o'clock position left breast. 4. Given the history of bloody left nipple discharge I recommend that a sample of this bloody dischar ge be sent for cytology testing. Findings and recommendations were discussed by myself with the patient today. The patient was informed of the findings and follow-up recommendations prior to leaving the [facility] today. BI-RADS Category 0 - Assessment Incomplete: Need additional evaluation. Recommend referral for cytol ogy assessment of the unilateral left breast bloody nipple discharge. Breast Density - Category B - Scattered areas of fibroglandular density Breast density Category C or D implies that the patient has dense breast tissue. Dense breast tissue can make it harder to find cancer on a mammogram. Dense breast tissue is also associated with an incr eased risk of breast cancer. This information about the result of the mammogram report was provided to the patient to raise their awareness. Use this report when you speak with the patient about their risks for breast cancer, which includes their family history. At that time, you may recommend additional screening tests (Ultrasoun d or MRI) as these tests may add significant information. A negative radiographic report should not delay biopsy if a dominant or clinically suspicious mass is present. Up to ten percent of cancers are not identified on mammography. A negative report may reinforce clinical impression. Adenosis and dense breasts may obscure an underlying neoplasm. False positive reports average 6 to 10%. Patient will receive a letter notifying them of these results.
== END 2022-03-25 01:06 ==
PROVIDERS: PCP Physician Assistant; Visit Provider Nurse Practitioner Family
DX: N64.52 Nipple discharge; N60.02 Solitary cyst of left breast; N63.10 Unspecified lump in the right breast, unspecified quadrant; N64.4 Mastodynia; R92.8 Other abnormal and inconclusive findings on diagnostic imaging of breast
CPT/HCPCS: 76642; 77062; 77066; G0279

== ENCOUNTER 2022-04-21 17:47 | Outpatient (REF) | payer MEDICAID, SELFPAY ==
--- NOTE | 2022-04-21 10:00 | PAPNONF_PTH ---
PATIENT: Donna Roth LOC: [facility] U#:[id number] AGE/SX: 32/F ROOM: RE04/21/[address]: Kathryn Lemons NP : 1990 BED: DIS: 04/21/2022 SPEC #: [id number] RECD: 04/21/22 18:13 STATUS: HEENA REQ #: [id number] YESSENIA: 04/21/22 10:[address]: Kathryn Lemons NP DEPT: [facility] Cytology RECD BY: Emily Mix ENTERED: 04/21/22 18:15 SP TYPE: PAPNONF YESENIA DR: Rhett Olvera Tissues: 1 - BODY FLUID CYTO-NIPPLE DC Procedures: BODY FLUID CYTO(NIPPLE DC)UV Comments: [id number]
== END 2022-04-21 17:48 | disposition home or self-care (01) ==
LOC: LBN 17:47
PROVIDERS: PCP Physician Assistant; Visit Provider Nurse Practitioner Women's Health
DX: N64.52 Nipple discharge (principal)
CPT/HCPCS: 88104

== ENCOUNTER 2022-05-22 16:34 | Emergency (ER) | payer MEDICAID, SELFPAY ==
[2022-05-22] VITALS (32 sets, daily range): BP systolic 122–134; BP diastolic 68–77; PULSE 72–80; RESP 16–23; TEMP 36.6; O2SAT 99–100
--- NOTE | 2022-05-22 17:05 | W.ED.GENAD ---
Discharge Plan Disposition Patient Disposition: HOME Condition: Stable Discharge Details Clinical Impression: Nausea vomiting and diarrhea Primary Care Provider: Rhett Olvera ED Provider: Lourdes Mead Home Meds and New Rx's Prescriptions: No Action No Known Home Meds Discharge Instructions Instructions: Acute Nausea and Vomiting (ED) Additional Instructions: Please take an qbnt-umn-ssockir antacid medication such as Prilosec, Maalox or similar. Clear liquids for the next 24 hours advance as tolerated. Please take the nausea medication up to 3 times daily as needed for nausea and vomiting. You are given a medication called Carafate for sucralfate which helps to coat the stomach. Follow up with primary care provider in 3-5 days. Return to ED sooner if any worsening or concerns. Increase oral fluids. Referrals: Rhett Olvera [Primary Care Provider] - 3 days Medical Decision Making Labs ordered including CBC, CMP, urinalysis, type and screen obtained by medical staff services coordinator. Will order fluids Pepcid nausea medication. CBC shows a mildly elevated white blood cell count at 12.14, absolute neutrophils 8.17, potassium 3.4, glucose 73 lipase is within normal limits. Hemoglobin and hematocrit within normal limits. Hemoglobin 14.1, hematocrit 41.8 Patient was given Tylenol IV for headache. Liter of normal saline. CT abdomen pelvis as noted below shows some free fluid in her pelvis from a recently ruptured ovarian cyst on the right. No other abnormalities Carafate p.o. ordered. Will p.o. challenge patient. 190: Patient reevaluation I did discuss her lab results and CT results with her she verbalized understanding. She reports that her nausea has improved she feels well enough to go home. I did discuss the Carafate and performing a p.o. challenge prior to discharge. She verbalizes understanding and is in agreement with plan. This text was generated using [employer] system, please disregard any oddities of phrase or misspellings. Medical Records Medical records reviewed: Yes I reviewed the patient's medical records. Imaging Data Radiologic Study: Imaging: CT Scan Radiologist's impression: FINDINGS: Liver: Normal. No mass. Gallbladder and bile ducts: Normal. No calcified stones. No ductal dilation. Pancreas: Normal. No ductal dilation. Spleen: Normal. No splenomegaly. Adrenal glands: Normal. No mass. Kidneys and ureters: Normal. No hydronephrosis. Stomach and bowel: Unremarkable. No obstruction. No mucosal thickening. Appendix: No evidence of appendicitis. Intraperitoneal space: Trace pelvic fluid. No free air. No significant fluid collection. Vasculature: Unremarkable. No abdominal aortic aneurysm. Lymph nodes: Unremarkable. No enlarged lymph nodes. Urinary bladder: Unremarkable as visualized. Reproductive: Partially collapsed right ovarian cyst measuring 18 mm Bones/joints: Unremarkable. No acute fracture. Soft tissues: Unremarkable. IMPRESSION: Recently ruptured small right ovarian cyst with trace pelvic fluid as noted Otherwise, no acute findings Thank you for allowing us to participate in the care of your patient. Dictated and Authenticated by: Pablito Roblero MD Lab Data Lab results reviewed: Yes I reviewed the patient's lab results. Labs: Laboratory Tests Range/Units 05/22/22 05/22/22 05/22/22 17:00 17:00 17:00 WBC (4.4-10.8) 10^3/uL 12.14 H RBC (3.93-5.22) 10^6/uL 4.55 Hgb (11.2-15.7) g/dL 14.1 Hct (36.0-46.0) % 41.8 MCV (80-95) fL 92 MCH (27.0-33.0) pg 31.0 MCHC (32.0-36.0) % 33.7 RDW (11.7-14.6) % 13.0 Plt Count (130-400) 10^3/uL 270 MPV (8.0-11.0) fL 10.0 Immature Gran % 0.6 Neutrophils % 67.3 Lymphocytes % 20.0 Monocytes % 9.1 Eosinophils % 2.7 Basophils % 0.3 Nucleated RBC % (0.0-0.3) % 0.0 Absolute Neutrophils (1.2-6.7) 10^3/uL 8.17 H Absolute Lymphocytes (1.2-3.4) 10^3/uL 2.43 Absolute Monocytes (0.1-0.8) 10^3/uL 1.10 H Absolute Eosinophils (0.0-0.7) 10^3/uL 0.33 Absolute Basophils (0.0-0.2) 10^3/uL 0.04 Sodium (136-145) mmol/L 143 Potassium (3.5-5.1) mmol/L 3.4 L Chloride (98-107) mmol/L 106 Carbon Dioxide (21.0-32.0) mmol/L 27.8 Anion Gap (3-11) mmol/L 9.2 BUN (7-18) mg/dL 9 Creatinine (0.55-1.02) mg/dL 0.9 Est GFR (CKD-EPI 2020) (mL/min/1.73m2) 87.65 Glucose (74-106) mg/dL 73 L Calcium (8.5-10.1) mg/dL 8.7 Magnesium (1.8-2.4) mg/dL 1.9 Total Bilirubin (0.2-1.0) mg/dL 0.2 AST (15-37) U/L 20 ALT (14-59) U/L 33 Alkaline Phosphatase (46-116) U/L 66 Total Protein (6.4-8.2) g/dL 7.4 Albumin (3.4-5.0) g/dL 4.1 Lipase (73-393) U/L 107 Patient ABO/Rh O Negative Antibody Screen NEGATIVE HPI General Mode of arrival: ambulatory. Date/Time Provider Initiated Documentation: 05/22/22 16:36. Limitations to Documentation: no limitations. Information obtained by: patient, RN notes reviewed and old records reviewed. HPI Narrative: 32-year-old female presents to the ER with chief complaint of coffee-ground type emesis x3 which began today. Patient reports nausea vomiting and abdominal pain began last night today she noticed coffee-ground in her emesis. She reports diarrhea has not reported any dark stool or blood in her stool. She is complaining of left upper quadrant abdominal pain. She also endorses headache. She denies any chest pain shortness of breath. Denies any problems urinating or any other associated symptoms. She is alert and oriented. She does have a past medical history of pancreatic lesion, pyelonephritis she has had her tubes tied. She does report that she drinks alcohol weekly denies any drug use. Related Data Home Medications Medication Instructions Recorded Confirmed Unknown [No Known Home Meds] 12/21/21 05/22/22 Allergies Allergy/AdvReac Type Severity Reaction Status Date / Time No Known Allergies Allergy Verified 05/22/22 16:50 General Stated Complaint: GI Bleed ALBERTINA: 2 Review of Systems All systems reviewed & are unremarkable except as noted in HPI and below Gastrointestinal Gastrointestinal: Reports abdominal pain, Reports coffee ground emesis, Reports nausea and Reports vomiting Genitourinary Genitourinary: Denies dysuria PFSH All Active Problems (Updated 05/22/22 @ 19:04 by Lourdes Mead NP) Nausea vomiting and diarrhea (Acute) Bloody discharge from left nipple (Acute) Status post bilateral salpingectomy (Acute) Chest pain (Acute) Unwanted fertility (Acute) Pyelonephritis (Acute) Pancreatic lesion (Acute) Medical History COVID-19 07/23/21-symptomatic Obesity (BMI 30.0-34.9) Surgical History pupil repair after trauma Family History Mother Alcohol abuse Father Neoplasm COLON Sister Substance abuse Social History Smoking/Tobacco Use Status: Current every day Tobacco Type: cigarettes Tobacco: How many years used: 14 Smoking risk assessment performed?: Yes Alcohol Intake: current Alcohol Intake frequency: a few times a week Alcohol type: beer Drug use: Never Substance use type: does not use Do you feel safe at home: Yes Do you feel safe in your relationship?: Yes Female Reproductive History Menstrual Age of Menarche: 14 Duration of menses: 3-5 days History History 4 Para 4 Hx # Term Pregnancies Multiple births Hx # Pregnancies Ectopic pregnancies AB induced Hx Number of Living Children AB spontaneous Exam Narrative Exam Narrative: Constitutional: Alert and oriented x3. Appears stated age. Normal body habitus. Head: Normocephalic, no trauma. Eyes: Pupils PERRL, Red reflex noted, EOM's intact. Eyelids symmetrical without lesions, discharge, or swelling. ENT: Bilateral TM's WNL, External ear normal to inspection, no mastoid TTP, swelling, or erythema, Nasal turbinates WNL, no nasal discharge. Normal dentition, Posterior pharynx WNL, no exudate. Chest: RRR, Normal S1, S2, distal pulses intact. Resp: Lungs clear to auscultation bilaterally, no wheezes, rales, or rhonchi. Abdomen: Soft, non-distended, Normoactive bowel sounds all 4 quads. Musculoskeletal: Normal gait, 5/5 strength to all four extremities. Skin: No suspicious rashes or lesions. Capillary refill less than 2 sec. Neurologic: Cranial nerves II-XII intact. Alert and oriented x 3. Motor: No deficits noted. Sensory: Intact bilaterally all 4 extremities. Reflexes: DTR's intact bilaterally.. Hematologic/Lymphatic: No ecchymosis, no lymphadenopathy. Course Vital Signs Vital signs: Vital Signs Temperature 36.6 C 05/22/22 16:43 Pulse 80 05/22/22 16:43 Respiratory Rate 18 05/22/22 16:43 Blood Pressure 134/77 05/22/22 16:43 Pulse Oximetry 100 05/22/22 16:43 Temperature 36.6 C 05/22/22 16:43 Temperature Source Oral 05/22/22 16:43 Pulse 76 05/22/22 16:49 Pulse 77 05/22/22 16:50 Respiratory Rate 22 05/22/22 16:50 Respiratory Effort Non-Labored 05/22/22 16:45 Blood Pressure 122/68 05/22/22 16:49 Blood Pressure Mean 81 05/22/22 16:49 Blood Pressure Position Sitting 05/22/22 16:43 Pulse Oximetry 99 05/22/22 16:50 Oxygen Delivery Method Room Air 05/22/22 16:43 Oxygen Flow Rate 0 05/22/22 16:43 Pain Level 9 05/22/22 16:43 PAWSS Have you Been Recently Intoxicated or Drunk Within the Last 30 days?: No Have you Ever Experienced Previous Episodes of Alcohol Withdrawal?: No Have you ever Experienced Withdrawal Seizures?: No Have you ever Experienced Delirium Tremens(DT)s?: No Have you ever undergone Alcohol Rehabilitation Treatment (i.e, inpt ot outpatient treatment programs)?: No Have you ever Experienced Blackouts?: No Have you ever Combined Alcohol with other Downers within the last 90 days?: No Have you ever Combined Alcohol with any other Substance of Abuse during the last 90 days?: No Positive Blood Alcohol level on Presentation? [PCS.BAL]: No Evidence of Increased Autonomic Activity (i.e. HR>120, tremor, sweating, agitation, nausea)?: No Result: 0
[2022-05-22 17:16] LABS: Abs Immature Grans 0.07 10^3/uL (0.0-0.06); Absolute Basophil Count 0.04 10^3/uL (0.0-0.2); Absolute Eosinophil Count 0.33 10^3/uL (0.0-0.7); Absolute Lymphocyte Count 2.43 10^3/uL (1.2-3.4); Absolute Neutrophil Count 8.17 10^3/uL (1.2-6.7); Basophils % 0.3; Eosinophils % 2.7; HCT 41.8 % (36.0-46.0); HGB 14.1 g/dL (11.2-15.7); Immature Grans % 0.6; MCHC 33.7 % (32.0-36.0); MCV 92 fL (80-95); Monocytes % 9.1; Neutrophils % 67.3; Platelet Count 270 10^3/uL (130-400); RBC 4.55 10^6/uL (3.93-5.22); RDW-SD 43.2 fL; WBC 12.14 10^3/uL (4.4-10.8)
[2022-05-22] MEDS: ACETAMINOPHEN 1,000 MG/100 ML BTL 400 MG (17:30)
[2022-05-22] MEDS: Normal Saline 1,000 ML 1000 ML IV (17:31)
[2022-05-22] MEDS: Normal Saline Flush 10 ML SYR IVP ×2 (17:32→18:30)
[2022-05-22] MEDS: Pantoprazole 40 MG VIAL IVP (17:32)
[2022-05-22] MEDS: Ondansetron 4 MG/2 ML VIAL IVP (17:32)
[2022-05-22 17:38] LABS: ALT 33 U/L (14-59); AST 20 U/L (15-37); Albumin 4.1 g/dL (3.4-5.0); Alkaline Phosphatase 66 U/L (46-116); Anion Gap 9.2 mmol/L (3-11); BUN 9 mg/dL (7-18); Bilirubin, Total 0.2 mg/dL (0.2-1.0); CO2 27.8 mmol/L (21.0-32.0); CREATININE 0.9 mg/dL (0.55-1.02); Calcium 8.7 mg/dL (8.5-10.1); Chloride 106 mmol/L (98-107); Estimated GFR 87.65 (mL/min/1.73m2); Glucose 73 mg/dL (74-106); Lipase 107 U/L (73-393); Magnesium 1.9 mg/dL (1.8-2.4); Potassium 3.4 mmol/L (3.5-5.1); Sodium 143 mmol/L (136-145); Total Protein 7.4 g/dL (6.4-8.2)
--- NOTE | 2022-05-22 17:45 | DI.CT_ITS ---
Exam(s) CT ABDOMEN PELVIS W EXAM: CT ABDOMEN PELVIS W CLINICAL HISTORY: Abdominal Pain, Nausea, Vomiting. TECHNIQUE: Imaging Protocol: Axial computed tomography images with coronal and sagittal reformatted images were created and reviewed CONTRAST MATERIAL: Intravenous: Omnipaque 100cc Oral: None COMPARISON: CT CT ABDOMEN PELVIS W from 09/28/2021 FINDINGS: VISUALIZED LUNG BASES: No nodules nor pleural effusions evident. ABDOMEN: There is no ascites. LIVER: There are no focal hepatic lesions evident . GALLBLADDER/BILIARY: No obvious gallbladder pathology. CBD is not dilated. PANCREAS: No evidence of pancreatic mass nor dilatation of the pancreatic duct. SPLEEN: Spleen is not enlarged. No obvious intrasplenic lesions. Splenic and portal veins are paten t. ADRENALS: There are no significant adrenal masses. KIDNEYS:No cysts evident. No solid renal masses. No calculi nor hydronephrosis.. ABDOMINAL AORTA: Abdominal aorta is not enlarged. LYMPH NODES:There is no retroperitoneal nor paraaortic adenopathy. ABDOMINAL WALL: No evidence of significant anterior abdominal wall nor inguinal hernia. GI: There is no evidence of bowel obstruction, free air, nor abscess. PELVIS: GI: No evidence of appendicitis.No evidence of sigmoid diverticulitis. LYMPH NODES: There is no intrapelvic nor inguinal adenopathy. REPRODUCTIVE: Uterus unremarkable. There appear to be bilateral corpus luteum cyst in the ovaries. Larger of the 2 is on the right side measuring 2 x 1.3 cm and exhibits enhancing wall 4 millimeters t hick. Small amount of surrounding fluid and in the right-side of the cul-de-sac. URINARY BLADDER: No calculi nor obvious masses evident OSSEOUS: No significant osseous lesions. IMPRESSION: 1. No evidence of appendicitis nor diverticulitis. 2. Partially collapsed right ovarian cyst with corpus luteal appearance, measuring 2 x 1.3 cm. Small amount of fluid in the ipsilateral adnexa and cul-de-sac. RADIATION DOSE DELIVERED: 1,219.88mGy.cm Total DLP DATA REPOSITORY: All CT scans at this facility are submitted to the National Radiology Data Registry (NRDR) Dose Index Registry (DIR) with the [employer] ([employer]). RADIATION OPTIMIZATION: All CT scans at this facility use at least one of these dose optimization te chniques: automated exposure control; mA and/or kV adjustment per patient size (includes targeted exa ms where dose is matched to clinical indication); or iterative reconstruction.
[2022-05-22] MEDS: Omnipaque 350 MG/ML 100 ML BTL IJ (18:26)
[2022-05-22] MEDS: Normal Saline - Diluent 50 ML VIAL IJ (18:30)
--- NOTE | 2022-05-22 18:41 | DI.VRAD_ITS ---
PROCEDURE INFORMATION: Exam: CT Abdomen And Pelvis With Contrast Exam date and time: 05/22/2022 6:24 PM Age: 32 years old Clinical indication: Nausea and vomiting; Abdominal pain; Generalized TECHNIQUE: Imaging protocol: Computed tomography of the abdomen and pelvis with contrast. Radiation optimization: All CT scans at this facility use at least one of these dose optimization techniques: automated exposure control; mA and/or kV adjustment per patient size (includes targeted exams where dose is matched to clinical indication); or iterative reconstruction. Contrast material: OMNIPAQUE 350; Contrast volume: 100 ml; Contrast route: INTRAVENOUS (IV); COMPARISON: MR ABDOMEN WO/W 12/11/2021 1:58 PM FINDINGS: Liver: Normal. No mass. Gallbladder and bile ducts: Normal. No calcified stones. No ductal dilation. Pancreas: Normal. No ductal dilation. Spleen: Normal. No splenomegaly. Adrenal glands: Normal. No mass. Kidneys and ureters: Normal. No hydronephrosis. Stomach and bowel: Unremarkable. No obstruction. No mucosal thickening. Appendix: No evidence of appendicitis. Intraperitoneal space: Trace pelvic fluid. No free air. No significant fluid collection. Vasculature: Unremarkable. No abdominal aortic aneurysm. Lymph nodes: Unremarkable. No enlarged lymph nodes. Urinary bladder: Unremarkable as visualized. Reproductive: Partially collapsed right ovarian cyst measuring 18 mm Bones/joints: Unremarkable. No acute fracture. Soft tissues: Unremarkable. IMPRESSION: Recently ruptured small right ovarian cyst with trace pelvic fluid as noted Otherwise, no acute findings Dictated and Authenticated by: Pablito Roblero MD. Ordering:AZAM Freed MD
[2022-05-22] MEDS: Ondansetron O.D.T. 4 MG TABEF, 3 TABS/BTL PO (19:12)
== END 2022-05-22 19:31 | disposition home or self-care (01) ==
PROVIDERS: Emergency Provider Registered Nurse Emergency; PCP Physician Assistant
DX: R19.7 Diarrhea, unspecified (principal); R11.2 Nausea with vomiting, unspecified; D72.829 Elevated white blood cell count, unspecified; N83.291 Other ovarian cyst, right side; Z86.16 Personal history of COVID-19
CPT/HCPCS: 36415; 80053; 81025; 83690; 86850; 86900; 86901; 96361; 96374; 96375; 99285; 74177; 83735; 85025; 99284; J0131; J2405; J3490

== ENCOUNTER 2022-05-25 17:49 | Outpatient (REF) | payer MEDICAID, SELFPAY | END 2022-05-25 17:50 | disposition home or self-care (01) | LOC: NCHCN 17:49 | PROVIDERS: PCP Physician Assistant; Visit Provider Family Medicine | DX: R10.2 Pelvic and perineal pain (principal) | CPT/HCPCS: 87491; 87591 ==

== ENCOUNTER 2022-09-30 14:48 | Outpatient (CLI) | payer MEDICAID, SELFPAY ==
--- NOTE | 2022-09-30 | DI.CT_ITS ---
Exam(s) CT NECK W EXAM: CT NECK W CLINICAL HISTORY: SUBCUTANEOUS NODULE NECK, R22.1, FIRM NECK NODULARITY RT ANT NECK. TECHNIQUE: Imaging Protocol: Axial computed tomography images with coronal and sagittal reformatted images were created and reviewed. CONTRAST MATERIAL: Intravenous: Omnipaque 350 Contrast volume:99mL COMPARISON: CT HEAD WITHOUT CONTRAST from 11/16/2011 FINDINGS: Orbits and orbital soft tissues: Within normal limits. Visualized paranasal sinuses: There is mild mucosal thickening in the maxillary sinuses. The remain ing visualized paranasal sinuses and mastoid air cells are clear. Nasopharynx: Within normal limits. Oropharynx: Within normal limits. Hypopharynx: Within normal limits. Larynx: Within normal limits. Retropharyngeal space: Within normal limits. Parotids/submandibular: Within normal limits. Thyroid gland: Within normal limits. Lymphadenopathy: There is scattered lymph nodes seen along the level one to level three all measurin g less than 8 mm in short axis diameter which are physiologic in nature. Trachea: Within normal limits. Lung apices: Within normal limits. Bones: Within normal limits for the patient's age. Carotids/Jugular: Within normal limits. Soft tissues: Within normal limits. IMPRESSION: Normal CT scan of the neck. No suspicious soft tissue masses. RADIATION DOSE DELIVERED: 558.14mGy.cm Total DLP 558.14mGy.cm Total DLP DATA REPOSITORY: All CT scans at this facility are submitted to the National Radiology Data Registry (NRDR) Dose Index Registry (DIR) with the [employer] ([employer]). RADIATION OPTIMIZATION: All CT scans at this facility use at least one of these dose optimization te chniques: automated exposure control; mA and/or kV adjustment per patient size (includes targeted exa ms where dose is matched to clinical indication); or iterative reconstruction.
[2022-09-30] MEDS: Normal Saline - Diluent 50 ML VIAL IJ (15:45)
[2022-09-30] MEDS: Omnipaque 350 MG/ML 100 ML BTL IJ (15:45)
== END 2022-09-30 15:08 ==
PROVIDERS: PCP Physician Assistant; Visit Provider Physician Assistant
DX: R22.1 Localized swelling, mass and lump, neck (principal)
CPT/HCPCS: 70491; J3490